=== PATIENT | female | born 1935 | race Two or more races ===

== ENCOUNTER 2016-07-16 12:56 | Emergency (ER) | payer OTHER, MEDICAID ==
--- NOTE | 2016-07-16 13:55 | EDPHY ---
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 The patient reports bilious vomiting earlier in the week. She had vomiting episodically for about 4 days then her symptoms resolved. Her vomiting and epigastric pain returned today prompting her visit to the ED. The patient has no prior history of abdominal surgery. The patient does have a pacemaker. She is currently anticoagulated. She does have a history of coronary artery bypass grafting. Patient denies any melena. She complains of moderate to severe pain in her epigastrium. She denies acute urinary complaints. REVIEW OF SYSTEMS: A comprehensive 10 point review of systems is otherwise negative aside from elements mentioned in the history of present illness. (Jan Eddy) - Physical Exam Exam: General Appearance: Alert, no distress Eyes: Pupils equal and round no pallor or injection ENT, Mouth: Mucous membranes moist Respiratory: There are no retractions, lungs are clear to auscultation Cardiovascular: Regular rate and rhythm Gastrointestinal: Epigastric tenderness to palpation Neurological: A&O, normal motor function, normal sensory exam, normal cranial nerves Skin: Warm and dry, no rashes Musculoskeletal: Neck is supple nontender Extremities: symmetrical, full range of motion (Jan Eddy) Constitutional: Initial Vital Signs Temperature (C) 36.6 C 07/16/16 12:57 Heart Rate 84 07/16/16 12:57 Respiratory Rate 14 07/16/16 12:57 Blood Pressure 108/85 H 07/16/16 12:57 O2 Sat (%) 94 07/16/16 12:57 O2 Delivery Mode Room Air O2 (L/minute) 2 Allergies/Adverse Reactions: Sulfa (Sulfonamide Antibiotics) Allergy (Intermediate, Verified 10/10/14 11:32) Rash Home Medications: Medication Instructions Recorded Clopidogrel Bisulfate [Clopidogrel] 75 mg PO DAILY 09/14/13 Lansoprazole [Lansoprazole 30 mg 30 mg PO DAILY 09/14/13 tab] Rosuvastatin Calcium [Crestor] 10 mg PO DAILY 09/14/13 metFORMIN HCL [Glucophage 500 mg 500 mg PO BIDMEAL 09/14/13 (*)] Carvedilol [Coreg (*)] 6.25 mg PO BIDMEAL #60 tab 09/19/13 Digoxin [Lanoxin 0.125 mg] 0.125 mg PO DAILY10 #30 tab 09/19/13 Diazepam [Valium 5 MG (*)] 5 mg PO BID PRN #10 tab 05/03/14 Alendronate Sodium [Fosamax 70 MG 70 mg PO MO@0700 05/12/15 (*)] Latanoprost 0.005% [Xalatan 0.005% 1 drops EACHEYE HS 05/12/15 (*)] Potassium Chloride [Klor-Con] 25 meq PO BID 05/12/15 Warfarin Sodium [Coumadin 5MG (*)] 2.5 mg PO Q2D 05/12/15 Warfarin Sodium [Coumadin 5MG (*)] 5 mg PO Q2D 05/12/15 Furosemide [Lasix] 60 mg PO DAILY #90 tab 06/25/15 Valsartan [Diovan (*)] 40 mg PO HS #0 tab 06/25/15 Ondansetron Odt [Zofran Odt] 4 mg PO Q4PRN PRN #4 tab 07/16/16 Medical Decision Making ED Course/Re-evaluation: The patient presents to the ED with a one-week history of episodic intermittent epigastric pain and bilious vomiting. Patient had an IV established. She received a L of normal saline. She received IV Zofran. The patient's laboratory studies are within normal limits. The patient did receive IV morphine 4 mg. Given the patient's tenderness in age, a CT scan the abdomen and pelvis has been ordered. The patient is turned over to Dr. Harrison at shift change. If the CT scan in normal and the patient is tolerating liquids, I do feel she can be discharged to home. (Jan Eddy) Patient seen by me at 4:15 p.m.. The patient had initially declined IV contrast for her CT. I discussed this with the son and daughter of the patient as well as the patient. The patient only speaks Farsi but the son speaks good Frisian and the daughter is apparently a physician. We discussed her use of metformin and that she would not be able to take metformin for the next 2 days with the IV contrast however they do eventually agree to IV contrast CT abdomen and pelvis with IV contrast interpreted by me and discussed with Dr. Tuttle shows extensive vascular disease. No evidence for skin viera me of the intestine. No acute findings. Re-evaluation at 6:00 p.m. and patient is stable. The patient family and I discussed imaging and lab results. We discussed treatment plan including criteria for return and importance of follow-up and further evaluation. They expressed understanding and agreement (Ervin Harrison) Differential Diagnosis: Differential diagnosis considered includes perforation, obstruction, pancreatitis, cholecystitis, gastroenteritis, abdominal aortic aneurysm, appendicitis (Jan Eddy) This is likely gastroenteritis (Ervin Harrison) - Data Points Laboratory Results: Laboratory Results 07/16/16 14:00 07/16/16 14:00 07/16/16 07/16/16 07/16/16 16:15 14:00 14:00 WBC RBC Hgb Hct MCV MCH MCHC RDW Plt Count MPV Neut % (Auto) Lymph % (Auto) [place] % (Auto) Eos % (Auto) Baso % (Auto) Nucleat RBC Rel Count Absolute Neuts (auto) Absolute Lymphs (auto) Absolute Monos (auto) Absolute Eos (auto) Absolute Basos (auto) Absolute Nucleated RBC Immature Gran % Immature Gran # PT 25.7 SEC H SEC (12.0-15.0) INR 2.32 H (0.83-1.16) Sodium 131 mEq/L L mEq/L (134-144) Potassium 4.0 mEq/L mEq/L (3.5-5.2) Chloride 95 mEq/L L mEq/L (97-110) Carbon Dioxide 24 mEq/l mEq/l (22-31) Anion Gap 12 mEq/L mEq/L (8-16) BUN 17 mg/dL mg/dL (7-23) Creatinine 0.9 mg/dL mg/dL (0.6-1.0) Estimated GFR > 60 Glucose 168 mg/dL H mg/dL (70-100) Calcium 9.2 mg/dL mg/dL (8.5-10.4) Total Bilirubin 1.3 mg/dL mg/dL (0.1-1.4) Conjugated Bilirubin 0.6 mg/dL H mg/dL (0.0-0.5) Unconjugated Bilirubin 0.7 mg/dL mg/dL (0.0-1.1) AST 25 IU/L IU/L (14-46) ALT 22 IU/L IU/L (9-52) Alkaline Phosphatase 40 IU/L IU/L (38-126) Total Protein 7.1 g/dL g/dL (6.3-8.2) Albumin 4.0 g/dL g/dL (3.5-5.0) Lipase 136.0 IU/L IU/L (23-300) Urine Color YELLOW Urine Appearance CLEAR Urine pH 7.0 (5.0-7.5) Ur Specific [place] 1.004 (1.002-1.030) Urine Protein NEGATIVE (NEGATIVE) Urine Ketones NEGATIVE (NEGATIVE) Urine Blood 1+ H (NEGATIVE) Urine Nitrate NEGATIVE (NEGATIVE) Urine Bilirubin NEGATIVE (NEGATIVE) Urine Urobilinogen NEGATIVE EU EU (0.2-1.0) Ur Leukocyte Esterase NEGATIVE (NEGATIVE) Urine RBC 1-3 /hpf /hpf (0-3) Urine WBC 1-3 /hpf /hpf (0-3) Ur Epithelial Cells TRACE /lpf /lpf (NONE-1+) Urine Mucus TRACE /lpf /lpf (NONE-1+) Ur Culture Indicated? NOT INDICATED (NI) Urine Glucose NEGATIVE (NEGATIVE) Digoxin 1.5 ng/mL ng/mL (0.8-2.0) 07/16/16 14:00 WBC 8.98 10^3/uL 10^3/uL (3.80-9.50) RBC 3.40 10^6/uL L 10^6/uL (4.18-5.33) Hgb 11.4 g/dL L g/dL (12.6-16.3) Hct 32.3 % L % (38.0-47.0) MCV 95.0 fL fL (81.5-99.8) MCH 33.5 pg pg (27.9-34.1) MCHC 35.3 g/dL g/dL (32.4-36.7) RDW 12.4 % % (11.5-15.2) Plt Count 204 10^3/uL 10^3/uL (150-400) MPV 10.1 fL fL (8.7-11.7) Neut % (Auto) 75.2 % H % (39.3-74.2) Lymph % (Auto) 14.9 % L % (15.0-45.0) [place] % (Auto) 8.6 % % (4.5-13.0) Eos % (Auto) 0.4 % L % (0.6-7.6) Baso % (Auto) 0.3 % % (0.3-1.7) Nucleat RBC Rel Count 0.0 % % (0.0-0.2) Absolute Neuts (auto) 6.75 10^3/uL H 10^3/uL (1.70-6.50) Absolute Lymphs (auto) 1.34 10^3/uL 10^3/uL (1.00-3.00) Absolute Monos (auto) 0.77 10^3/uL 10^3/uL (0.30-0.80) Absolute Eos (auto) 0.04 10^3/uL 10^3/uL (0.03-0.40) Absolute Basos (auto) 0.03 10^3/uL 10^3/uL (0.02-0.10) Absolute Nucleated RBC 0.00 10^3/uL 10^3/uL (0-0.01) Immature Gran % 0.6 % % (0.0-1.1) Immature Gran # 0.05 10^3/uL 10^3/uL (0.00-0.10) PT INR Sodium Potassium Chloride Carbon Dioxide Anion Gap BUN Creatinine Estimated GFR Glucose Calcium Total Bilirubin Conjugated Bilirubin Unconjugated Bilirubin AST ALT Alkaline Phosphatase Total Protein Albumin Lipase Urine Color Urine Appearance Urine pH Ur Specific [place] Urine Protein Urine Ketones Urine Blood Urine Nitrate Urine Bilirubin Urine Urobilinogen Ur Leukocyte Esterase Urine RBC Urine WBC Ur Epithelial Cells Urine Mucus Ur Culture Indicated? Urine Glucose Digoxin Medications Given: Discontinued Medications Sodium Chloride (Ns) 1,000 mls @ 0 mls/hr IV ONCE ONE PRN Reason: Wide Open Stop: 07/16/16 14:00 Last Admin: 07/16/16 14:00 Dose: 1,000 mls Morphine Sulfate (Morphine) 4 mg IVP EDNOW ONE Stop: 07/16/16 14:00 Last Admin: 07/16/16 14:26 Dose: Not Given Ondansetron HCl (Zofran) 4 mg IVP EDNOW ONE Stop: 07/16/16 14:00 Last Admin: 07/16/16 14:13 Dose: 4 mg Departure - Departure Disposition: Home, Routine, Self-Care Clinical Impression: Acute gastroenteritis Condition: Good Instructions: Acute Nausea and Vomiting (ED) Additional Instructions: Frequent, small sips fluids. Gradual diet advancement. Zofran if needed for nausea and vomiting. Imodium (loperamide) as needed for diarrhea. Return for worsening symptoms. Recheck in 2 days without fail by regular physician Referrals: Laurie Dorado MD [Primary Care Provider] - 1-2 days without fail Prescriptions: Ondansetron Odt [Zofran Odt] 4 mg PO Q4PRN PRN #4 tab PRN Reason: Nausea/Vomiting, Use 1st
[2016-07-16] MEDS ORDERED: ONDANSETRON 4 MG/2 ML VIAL IVP ONE (13:59)
[2016-07-16] MEDS ORDERED: NS 1,000 ML IV ONE (13:59)
[2016-07-16 14:11] LABS: % IMMATURE GRANULYOCYTES 0.6 % (0.0-1.1); ABSOLUTE IMMATURE GRANULOCYTES 0.05 10^3/uL (0.00-0.10); ADD DIFF? NO; ADD MORPH? NO; ADD SCAN? NO; ATYPICAL LYMPHOCYTE FLAG 0 (0-99); FRAGMENT RBC FLAG 0 (0-99); HEMATOCRIT 32.3 % (38.0-47.0); HEMOGLOBIN 11.4 g/dL (12.6-16.3); LEFT SHIFT FLG 0 (0-99); LIPEMIA HEMOLYSIS FLAG 90 (0-99); MEAN CELL HEMOGLOBIN 33.5 pg (27.9-34.1); MEAN CELL HEMOGLOBIN CONCENTR. 35.3 g/dL (32.4-36.7); MEAN PLATELET VOLUME 10.1 fL (8.7-11.7); PLATELET CLUMPS FLAG 10 (0-99); PLATELET COUNT 204 10^3/uL (150-400); RED CELL DISTRIBUTION WIDTH 12.4 % (11.5-15.2)
[2016-07-16 14:17] VITALS: RESP 16
[2016-07-16 14:38] LABS: ALANINE AMINOTRANSFERASE 22 IU/L (9-52); ALKALINE PHOSPHATASE 40 IU/L (38-126); ANION GAP 12 mEq/L (8-16); ASPARTATE AMINOTRANSFERASE 25 IU/L (14-46); BILIRUBIN,TOTAL 1.3 mg/dL (0.1-1.4); BILIRUBIN-CONJUGATED 0.6 mg/dL (0.0-0.5); BILIRUBIN-UNCONJUGATED 0.7 mg/dL (0.0-1.1); CALCIUM 9.2 mg/dL (8.5-10.4); CARBON DIOXIDE 24 mEq/l (22-31); CHLORIDE 95 mEq/L (97-110); CREATININE 0.9 mg/dL (0.6-1.0); DIGOXIN 1.5 ng/mL (0.8-2.0); GLOMERULAR FILTRATION RATE > 60; GLUCOSE 168 mg/dL (70-100); SODIUM 131 mEq/L (134-144); TOTAL PROTEIN 7.1 g/dL (6.3-8.2)
[2016-07-16 15:15] LABS: INR 2.32 (0.83-1.16); PROTIME(PATIENT) 25.7 SEC (12.0-15.0)
[2016-07-16] MEDS ORDERED: IOPAMIDOL (ISOVUE-300) 100 ML BTL IV ONE (15:15)
[2016-07-16 17:00] LABS: COLOR YELLOW; LEUKOCYTE ESTERASE,URINE NEGATIVE (NEGATIVE); NITRITE,URINE NEGATIVE (NEGATIVE)
[2016-07-16 17:07] LABS: MUCUS TRACE /lpf (NONE-1+)
[2016-07-16 18:01] VITALS: BP 122/40; PULSE 77; TEMP 98.4; O2SAT 99
== END 2016-07-16 18:27 | disposition home or self-care (01) ==
DX: K52.9 Noninfective gastroenteritis and colitis, unspecified (principal); E11.9 Type 2 diabetes mellitus without complications; I25.10 Atherosclerotic heart disease of native coronary artery without angina pectoris; Z79.01 Long term (current) use of anticoagulants
CPT/HCPCS: 74177; 96361; 96374; 99285; J2405; Q9967

== ENCOUNTER → 2016-12-12 | Outpatient (CLI) | payer OTHER, MEDICAID | LOC: BHFA 10:00 | PROVIDERS: ATTEND Internal Medicine Cardiovascular Disease | DX: I25.10 Atherosclerotic heart disease of native coronary artery without angina pectoris (principal); I10 Essential (primary) hypertension ==

== ENCOUNTER 2017-07-24 12:27 | Inpatient (IN) | payer OTHER, MEDICAID ==
--- NOTE | 2017-07-24 14:42 | EDPHY ---
H & P Time Seen by Provider: 07/24/17 14:40 HPI/ROS: CHIEF COMPLAINT: Back pain after a fall on July 13 HISTORY OF PRESENT ILLNESS: Patient presents with her 2 daughters. She apparently had a fall unknown mechanism on July 13 and has had bruising on her right flank ever since which is worse today. Does not radiate and worse with movement. Associated with some darker urine and bilateral increased leg swelling. She has baseline gait instability which is been worse over the past week. She denies headache or neck pain. No seizure activity. Pain in her back is moderate hand appears to be impacting her ability to get around at home. REVIEW OF SYSTEMS: Eye: no change in vision ENT: no sore throat Cardiac: no chest pain or syncope Pulmonary: no cough or SOB Abdomen: no vomiting, diarrhea, abdominal pain Musculoskeletal: HPI Skin: Bruising on the right flank and abrasion on the right knee Neuro: no headache Constitutional: no fever : no urinary symptoms A comprehensive 10 point review of systems is otherwise negative aside from elements mentioned in the history of present illness. PAST MEDICAL HISTORY: Includes coronary artery disease, diabetes, atrial fibrillation on Plavix. Pacemaker. Social history: Here with her 2 daughters General Appearance: Alert and conversant, cooperative. Eyes: No scleral icterus. ENT, Mouth: Normal mucous membranes. Respiratory: Normal respiratory effort, breath sounds equal, lungs are clear to auscultation. Cardiovascular: Regular rate and rhythm. Gastrointestinal: Abdomen is soft and non tender. Neurological: Alert, face symmetric, normal motor and sensory in extremities. 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 Skin: Bruising over the right flank and abrasion on the right knee, does not appear to have surrounding redness on the right knee or lymphangitis or discharge. Musculoskeletal: Lumbar spine tenderness but no thoracic or cervical spine tenderness. Bilateral 3 to 4+ pedal edema including the feet. Compartments are soft. Psychiatric: Not agitated. Emergency Department course/MDM: Bilateral peripheral edema and flank bruising, worsening pain and gait instability since falling Coumadin. Noncontrast head CT for trauma and anticoagulation, CT abdomen and pelvis with spine reconstructions for flank and back trauma in the lower torso, labs to include CBC chemistry and BNP. EKG. 1548: Negative head per Isuani. 1610: [place], old T12, L1, and L5 compression fractures. 1620: [place] new pleural effusions and ascites on abdomen pelvis CT scan. Discussed with patient and daughters, admit CHF with peripheral edema and trouble walking, pleural effusions and ascites, BNP >11,000. Smoking Status: Never smoked Constitutional: Initial Vital Signs Temperature (C) 36.5 C 07/24/17 12:41 Heart Rate 73 07/24/17 12:41 Respiratory Rate 18 07/24/17 12:41 Blood Pressure 139/50 H 07/24/17 12:41 O2 Sat (%) 96 07/24/17 12:41 O2 Delivery Mode Room Air Allergies/Adverse Reactions: Sulfa (Sulfonamide Antibiotics) Allergy (Intermediate, Verified 07/24/17 12:40) Rash Home Medications: Medication Instructions Recorded Clopidogrel Bisulfate [Clopidogrel] 75 mg PO HS 09/14/13 Lansoprazole [Lansoprazole 30 mg 30 mg PO DAILY 09/14/13 tab] metFORMIN HCL [Glucophage 500 mg 500 mg PO BIDMEAL 09/14/13 (*)] Carvedilol [Coreg (*)] 6.25 mg PO BIDMEAL #60 tab 09/19/13 Digoxin [Lanoxin 0.125 mg] 0.125 mg PO DAILY10 #30 tab 09/19/13 Diazepam [Valium 5 MG (*)] 5 mg PO BID PRN #10 tab 05/03/14 Alendronate Sodium [Fosamax 70 MG 70 mg PO MO@0700 05/12/15 (*)] Latanoprost 0.005% [Xalatan 0.005% 1 drops EACHEYE HS 05/12/15 (*)] Potassium Chloride [Klor-Con] 25 meq PO DAILY 05/12/15 Warfarin Sodium [Coumadin 5MG (*)] 2.5 mg PO Q2D 05/12/15 Warfarin Sodium [Coumadin 5MG (*)] 5 mg PO Q2D 05/12/15 Furosemide [Lasix 40 MG (*)] 40 mg PO DAILY 07/24/17 Ondansetron Odt [Zofran Odt] 4 mg PO Q4H PRN 07/24/17 Medical Decision Making - Diagnostics EKG Interpretation: 12-lead EKG interpreted by me; official reading is in trace master. My interpretation is ventricular paced rhythm at 80. Imaging Results: Imaging Impressions Chest X-Ray 07/24/17 14:52 Impression: 1. No discernible fracture. 2. Cardiomegaly. No failure. Abdomen CT 07/24/17 15:10 Impression: 1. All of the findings may be related to underlying CHF and/or cirrhosis. 2. No obvious posttraumatic abnormality identified. 3. Difficult to exclude active gallbladder disease. 4. Atherosclerosis. 5. Nonobstructive bilateral nephrolithiasis. Final concordant results discussed with Dr. Efrem Buchanan at 4:20 PM. General information for patients regarding this examination can be found at [email or web address]. If you have questions or comments about this report, please contact me at [phone] (hospital) or [phone] (cell). Head CT 07/24/17 15:10 Impression: 1. Moderate atrophy. 2. No acute hemorrhage, hydrocephalus, or mass effect. 3. Cerebrovascular atherosclerosis. 4. No definite acute infarct. 5. Moderate microvascular ischemic gliosis. 6. No skull fracture. 7. No epidural or subdural hematoma. Findings and recommendations discussed with Emergency Department physician, EFREM BUCHANAN at 15:45 hour, 07/24/2017. Final report concurs with initial preliminary interpretation. Lumbar Spine CT 07/24/17 15:15 Impression: Osteoporosis with stable old compressions. Nothing acute identified. General information for patients regarding this examination can be found at [facility]. If you have questions or comments about this report, please contact me at [phone](hospital) or [phone] (cell). Imaging: Discussed imaging studies w/ theatrical rigger Radiologist Differential Diagnosis: Differential considered including but not limited to spine fracture, kidney injury, subcutaneous flank hematoma, retroperitoneal hematoma. Consult/Admit Bed Type: [place] [id number] - Data Points Laboratory Results: Laboratory Results 07/24/17 14:59 07/24/17 14:59 07/24/17 07/24/17 07/24/17 15:40 15:09 15:05 WBC RBC Hgb POC Hgb 12.9 gm/dL gm/dL TNP (12.6-16.3) Hct POC Hct 38 % % TNP (38-47) MCV MCH MCHC RDW Plt Count MPV Neut % (Auto) Lymph % (Auto) [place] % (Auto) Eos % (Auto) Baso % (Auto) Nucleat RBC Rel Count Absolute Neuts (auto) Absolute Lymphs (auto) Absolute Monos (auto) Absolute Eos (auto) Absolute Basos (auto) Absolute Nucleated RBC Immature Gran % Immature Gran # PT INR POC Sodium 129 mEq/L L mEq/L TNP (135-145) Sodium POC Potassium 4.0 mEq/L mEq/L TNP (3.3-5.0) Potassium POC Chloride 88 mEq/L L mEq/L TNP (97-110) Chloride Carbon Dioxide Anion Gap POC BUN 25 mg/dL H mg/dL TNP (7-23) BUN Creatinine POC Creatinine 1.2 mg/dL H mg/dL 1.1 mg/dL H mg/dL (0.6-1.0) (0.6-1.0) Estimated GFR Glucose POC Glucose 123 mg/dL H mg/dL 124 mg/dL H mg/dL (70-100) (70-100) Calcium NT-Pro-B Natriuret Pep Urine Color YELLOW Urine Appearance CLEAR Urine pH 7.0 (5.0-7.5) Ur Specific [place] 1.010 (1.002-1.030) Urine Protein NEGATIVE (NEGATIVE) Urine Ketones NEGATIVE (NEGATIVE) Urine Blood NEGATIVE (NEGATIVE) Urine Nitrate NEGATIVE (NEGATIVE) Urine Bilirubin NEGATIVE (NEGATIVE) Urine Urobilinogen NEGATIVE EU EU (0.2-1.0) Ur Leukocyte Esterase NEGATIVE (NEGATIVE) Urine Glucose NEGATIVE (NEGATIVE) 07/24/17 07/24/17 07/24/17 15:00 14:59 14:59 WBC RBC Hgb POC Hgb Hct POC Hct MCV MCH MCHC RDW Plt Count MPV Neut % (Auto) Lymph % (Auto) [place] % (Auto) Eos % (Auto) Baso % (Auto) Nucleat RBC Rel Count Absolute Neuts (auto) Absolute Lymphs (auto) Absolute Monos (auto) Absolute Eos (auto) Absolute Basos (auto) Absolute Nucleated RBC Immature Gran % Immature Gran # PT 17.8 SEC H SEC (12.0-15.0) INR 1.45 H (0.83-1.16) POC Sodium Sodium 129 mEq/L L mEq/L (135-145) POC Potassium Potassium 4.2 mEq/L mEq/L (3.5-5.2) POC Chloride Chloride 86 mEq/L L mEq/L (97-110) Carbon Dioxide 30 mEq/l mEq/l (22-31) Anion Gap 13 mEq/L mEq/L (8-16) POC BUN BUN 24 mg/dL H mg/dL (7-23) Creatinine 1.0 mg/dL mg/dL (0.6-1.0) POC Creatinine Estimated GFR 53 Glucose 115 mg/dL H mg/dL (70-100) POC Glucose Calcium 9.7 mg/dL mg/dL (8.5-10.4) NT-Pro-B Natriuret Pep 48781 pg/mL H pg/mL (0-450) Urine Color Urine Appearance Urine pH Ur Specific [place] Urine Protein Urine Ketones Urine Blood Urine Nitrate Urine Bilirubin Urine Urobilinogen Ur Leukocyte Esterase Urine Glucose 07/24/17 14:59 WBC 6.85 10^3/uL 10^3/uL (3.80-9.50) RBC 3.46 10^6/uL L 10^6/uL (4.18-5.33) Hgb 11.0 g/dL L g/dL (12.6-16.3) POC Hgb Hct 33.0 % L % (38.0-47.0) POC Hct MCV 95.4 fL fL (81.5-99.8) MCH 31.8 pg pg (27.9-34.1) MCHC 33.3 g/dL g/dL (32.4-36.7) RDW 13.5 % % (11.5-15.2) Plt Count 178 10^3/uL 10^3/uL (150-400) MPV 10.1 fL fL (8.7-11.7) Neut % (Auto) 63.9 % % (39.3-74.2) Lymph % (Auto) 20.3 % % (15.0-45.0) [place] % (Auto) 13.9 % H % (4.5-13.0) Eos % (Auto) 0.7 % % (0.6-7.6) Baso % (Auto) 0.9 % % (0.3-1.7) Nucleat RBC Rel Count 0.0 % % (0.0-0.2) Absolute Neuts (auto) 4.38 10^3/uL 10^3/uL (1.70-6.50) Absolute Lymphs (auto) 1.39 10^3/uL 10^3/uL (1.00-3.00) Absolute Monos (auto) 0.95 10^3/uL H 10^3/uL (0.30-0.80) Absolute Eos (auto) 0.05 10^3/uL 10^3/uL (0.03-0.40) Absolute Basos (auto) 0.06 10^3/uL 10^3/uL (0.02-0.10) Absolute Nucleated RBC 0.00 10^3/uL 10^3/uL (0-0.01) Immature Gran % 0.3 % % (0.0-1.1) Immature Gran # 0.02 10^3/uL 10^3/uL (0.00-0.10) PT INR POC Sodium Sodium POC Potassium Potassium POC Chloride Chloride Carbon Dioxide Anion Gap POC BUN BUN Creatinine POC Creatinine Estimated GFR Glucose POC Glucose Calcium NT-Pro-B Natriuret Pep Urine Color Urine Appearance Urine pH Ur Specific [place] Urine Protein Urine Ketones Urine Blood Urine Nitrate Urine Bilirubin Urine Urobilinogen Ur Leukocyte Esterase Urine Glucose Point of Care Test Results: 07/24/17 07/24/17 15:05 15:09 POC Sodium TNP 129 L POC Potassium TNP 4.0 POC Chloride TNP 88 L POC BUN TNP 25 H POC Creatinine 1.1 H 1.2 H POC Glucose 124 H 123 H Departure - Departure Disposition: [facility] Inpatient Acute Clinical Impression: Hyponatremia CHF (congestive heart failure) Qualifiers: Heart failure type: unspecified Heart failure chronicity: acute on chronic Qualified Code(s): I50.9 - Heart failure, unspecified Condition: Good Referrals: Laurie Dorado MD [Primary Care Provider] - As per Instructions
--- NOTE | 2017-07-24 14:59 | CPEKG ---
Heart Rate: 80 RR Interval: 750 P-R Interval: 207 QRSD Interval: 140 QT Interval: 392 QTC Interval: 453 P [place]: 0 QRS [place]: -62 T Wave [place]: 94 EKG Severity - ABNORMAL ECG - EKG Impression: VENTRICULAR-PACED RHYTHM Electronically Signed By: Lars Scott 24-Jul-2017 15:05:56
[2017-07-24 15:11] LABS: PLATELET COUNT 178 10^3/uL (150-400)
[2017-07-24] MEDS ORDERED: IOPAMIDOL (ISOVUE-300) 100 ML BTL ONE (15:14)
[2017-07-24 15:21] LABS: INR 1.45 (0.83-1.16); PROTIME(PATIENT) 17.8 SEC (12.0-15.0)
--- NOTE | 2017-07-24 15:31 | ASMTLACE ---
NADER Comorbidities - select Answers: Congestive heart failure all that apply Coronary Atery Disease Diabetes (uncontrolled or controlled) History of falls # of Emergency department Answers: 1-2 visits in the last 6 months Score: 9 Date Signed: 07/24/2017 03:30 PM Electronically Signed By:Lesly Mobley RN
--- NOTE | 2017-07-24 16:59 | ASMTCMCOM ---
CM Note CM Note Notes: Call from Snow Colbert with [facility]: patient was being seen there today and she was advised to come to ED for evaluation of her CHF. Per Snow, patient has been trying to get an appointment with [facility] - she will need this upon discharge. She lives with her son Lovely and has two daughters, one of whom [place] until 08/09/17. She is currently open with [facility] RN/PT. Snow recommended that we add OT and FUNCTIONAL SKILLS TUTOR when patient is discharged. Case Management will follow for discharge planning. Date Signed: 07/24/2017 04:59 PM Electronically Signed By:Lesly Mobley RN
[2017-07-24] MEDS ORDERED: D50W 25 GM/50 ML SYR IVP PRN (18:11)
[2017-07-24] MEDS ORDERED: ONDANSETRON 4 MG/2 ML VIAL IVP PRN (18:28)
[2017-07-24] MEDS ORDERED: ONDANSETRON DISINTEGRATING 4 MG TAB PO PRN (18:28)
[2017-07-24] MEDS ORDERED: WARFARIN SODIUM 5 MG TAB PO SCH (18:45)
--- NOTE | 2017-07-24 18:46 | PDGENHP ---
History and Physical - Chief Complaint Back pain, weakness - History of Present Illness 81 yo female with hx of CAD, Afib, PPM, CHF, presents with back pain and progressive weakness since falling on Jul 13 for unclear reasons. She was seen at her PCP's office today and referred to the E.D. She is on AC on Coumadin. She has some bruising on her back which appears healing and reports back pain. Reports MAYNARD, intermittent chest pain, increased leg swelling, increased abd swelling. No fever. No palpitations. No current chest pain. In the E.D. she had Heat CT, Abd Ct, which did not show acute findings. CXR personally reviewed did not show edema. Translation is provided by her daughters who are at bedside. PMHx: Afib, CAD, pacemaker, DM, Frequent Falls PSHx: CABG 2007, pacemaker 2009, coronary artery stents 2009 PSHx: No T/E/I, lives with son FmHx: Parents are . History Information - Allergies/Home Medication List Allergies/Adverse Reactions: Sulfa (Sulfonamide Antibiotics) Allergy (Intermediate, Verified 07/24/17 12:40) Rash Home Medications: Clopidogrel Bisulfate [Clopidogrel] 75 mg PO HS 09/14/13 [Last Taken 07/23/17] Lansoprazole [Lansoprazole 30 mg tab] 30 mg PO DAILY 09/14/13 [Last Taken ] metFORMIN HCL [Glucophage 500 mg (*)] 500 mg PO BIDMEAL 09/14/13 [Last Taken 06/12] Alendronate Sodium [Fosamax 70 MG (*)] 70 mg PO MO@0700 05/12/15 [Last Taken ] Latanoprost 0.005% [Xalatan 0.005% (*)] 1 drops EACHEYE HS 05/12/15 [Last Taken 07/23/17] Potassium Chloride [Klor-Con] 25 meq PO DAILY 05/12/15 [Last Taken 07/24/17] Warfarin Sodium [Coumadin 5MG (*)] 2.5 mg PO Q2D 05/12/15 [Last Taken 07/23/17] Warfarin Sodium [Coumadin 5MG (*)] 5 mg PO Q2D 05/12/15 [Last Taken 07/22/17] Furosemide [Lasix 40 MG (*)] 40 mg PO DAILY 07/24/17 [Last Taken 07/24/17] Ondansetron Odt [Zofran Odt] 4 mg PO Q4H PRN 07/24/17 [Last Taken Unknown] I have personally reviewed and updated: medical history, social history - Social History Smoking Status: Never smoked Review of Systems Review of Systems: ROS: 10pt was reviewed & negative except for what was stated in HPI & below Physical Exam Physical Exam: Temp Pulse Resp BP Pulse Ox 36.6 C 76 18 149/66 H 93 07/24/17 17:55 07/24/17 17:55 07/24/17 17:55 07/24/17 17:55 07/24/17 17:55 Constitutional: no apparent distress Eyes: PERRL Ears, Nose, Mouth, Throat: moist mucous membranes Cardiovascular: regular rate and rhythym, edema (3+LE Edema) Respiratory: no respiratory distress, clear to auscultation Gastrointestinal: normoactive bowel sounds, ascites, distension Skin: warm Musculoskeletal: generalized weakness Neurologic: AAOx3 Psychiatric: interacting appropriately, not anxious, not encephalopathic Lymph, Heme, Immunologic: No petechiae Lab Data & Imaging Review 07/24/17 14:59 07/24/17 14:59 WBC 6.85 10^3/uL (3.80-9.50) 07/24/17 14:59 RBC 3.46 10^6/uL (4.18-5.33) L 07/24/17 14:59 Hgb 11.0 g/dL (12.6-16.3) L 07/24/17 14:59 POC Hgb 12.9 gm/dL (12.6-16.3) 07/24/17 15:09 Hct 33.0 % (38.0-47.0) L 07/24/17 14:59 POC Hct 38 % (38-47) 07/24/17 15:09 MCV 95.4 fL (81.5-99.8) 07/24/17 14:59 MCH 31.8 pg (27.9-34.1) 07/24/17 14:59 MCHC 33.3 g/dL (32.4-36.7) 07/24/17 14:59 RDW 13.5 % (11.5-15.2) 07/24/17 14:59 Plt Count 178 10^3/uL (150-400) 07/24/17 14:59 MPV 10.1 fL (8.7-11.7) 07/24/17 14:59 Neut % (Auto) 63.9 % (39.3-74.2) 07/24/17 14:59 Lymph % (Auto) 20.3 % (15.0-45.0) 07/24/17 14:59 [place] % (Auto) 13.9 % (4.5-13.0) H 07/24/17 14:59 Eos % (Auto) 0.7 % (0.6-7.6) 07/24/17 14:59 Baso % (Auto) 0.9 % (0.3-1.7) 07/24/17 14:59 Nucleat RBC Rel Count 0.0 % (0.0-0.2) 07/24/17 14:59 Absolute Neuts (auto) 4.38 10^3/uL (1.70-6.50) 07/24/17 14:59 Absolute Lymphs (auto) 1.39 10^3/uL (1.00-3.00) 07/24/17 14:59 Absolute Monos (auto) 0.95 10^3/uL (0.30-0.80) H 07/24/17 14:59 Absolute Eos (auto) 0.05 10^3/uL (0.03-0.40) 07/24/17 14:59 Absolute Basos (auto) 0.06 10^3/uL (0.02-0.10) 07/24/17 14:59 Absolute Nucleated RBC 0.00 10^3/uL (0-0.01) 07/24/17 14:59 Immature Gran % 0.3 % (0.0-1.1) 07/24/17 14:59 Immature Gran # 0.02 10^3/uL (0.00-0.10) 07/24/17 14:59 PT 17.8 SEC (12.0-15.0) H 07/24/17 15:00 INR 1.45 (0.83-1.16) H 07/24/17 15:00 POC Sodium 129 mEq/L (135-145) L 07/24/17 15:09 Sodium 129 mEq/L (135-145) L 07/24/17 14:59 POC Potassium 4.0 mEq/L (3.3-5.0) 07/24/17 15:09 Potassium 4.2 mEq/L (3.5-5.2) 07/24/17 14:59 POC Chloride 88 mEq/L (97-110) L 07/24/17 15:09 Chloride 86 mEq/L (97-110) L 07/24/17 14:59 Carbon Dioxide 30 mEq/l (22-31) 07/24/17 14:59 Anion Gap 13 mEq/L (8-16) 07/24/17 14:59 POC BUN 25 mg/dL (7-23) H 07/24/17 15:09 BUN 24 mg/dL (7-23) H 07/24/17 14:59 Creatinine 1.0 mg/dL (0.6-1.0) 07/24/17 14:59 POC Creatinine 1.2 mg/dL (0.6-1.0) H 07/24/17 15:09 Estimated GFR 53 07/24/17 14:59 Glucose 115 mg/dL (70-100) H 07/24/17 14:59 POC Glucose 123 mg/dL (70-100) H 07/24/17 15:09 Calcium 9.7 mg/dL (8.5-10.4) 07/24/17 14:59 NT-Pro-B Natriuret Pep 69886 pg/mL (0-450) H 07/24/17 14:59 Urine Color YELLOW 07/24/17 15:40 Urine Appearance CLEAR 07/24/17 15:40 Urine pH 7.0 (5.0-7.5) 07/24/17 15:40 Ur Specific [place] 1.010 (1.002-1.030) 07/24/17 15:40 Urine Protein NEGATIVE (NEGATIVE) 07/24/17 15:40 Urine Ketones NEGATIVE (NEGATIVE) 07/24/17 15:40 Urine Blood NEGATIVE (NEGATIVE) 07/24/17 15:40 Urine Nitrate NEGATIVE (NEGATIVE) 07/24/17 15:40 Urine Bilirubin NEGATIVE (NEGATIVE) 07/24/17 15:40 Urine Urobilinogen NEGATIVE EU (0.2-1.0) 07/24/17 15:40 Ur Leukocyte Esterase NEGATIVE (NEGATIVE) 07/24/17 15:40 Urine Glucose NEGATIVE (NEGATIVE) 07/24/17 15:40 Assessment & Plan Assessment: #CHF with exacerbation -Last TTE May 2015 c/w LVEF of 45%, Severe Hypokinesis Inferior and Posterior brown, Dilated Left Atrium, Severe Mitral valve calcifications #Volume overload #CP #Afib, PPM, #chronic AC, subtherapeutic INR #DM, non IDDM #Recent Falls #Weakness Plan: -Inpatient admission -Lasix IV -TTE -Cards consult tomorrow, the patients and her pcp have requested, I have not notified -Tele -Cont Digoxin -Hold Metformin -Warfarin, pharmacy to dose -DNR, confirmed at bedside -PT/OT
[2017-07-24] MEDS ORDERED: WARFARIN SODIUM 5 MG TAB PO ONE (19:00)
[2017-07-24] MEDS: CLOPIDOGREL BISULFATE 75 MG TAB PO SCH (20:13)
[2017-07-24] MEDS: FUROSEMIDE 40 MG/4 ML VIAL IVP SCH (20:13)
[2017-07-24] MEDS: LATANOPROST 0.005% 2.5 ML OPHT DROPS EACHEYE SCH (20:58)
[2017-07-25 04:29] LABS: PLATELET COUNT 167 10^3/uL (150-400)
[2017-07-25 04:34] LABS: INR 1.49 (0.83-1.16); PROTIME(PATIENT) 18.2 SEC (12.0-15.0)
[2017-07-25] MEDS: ACETAMINOPHEN 325 MG TAB PO PRN ×3 (06:18→21:08)
[2017-07-25] MEDS: INSULIN LISPRO 100 UNIT/ML SC SCH ×3 (08:21→18:23)
[2017-07-25] MEDS: FUROSEMIDE 40 MG/4 ML VIAL IVP SCH ×2 (09:15→14:32)
[2017-07-25] MEDS: PANTOPRAZOLE SODIUM 40 MG TAB PO SCH (09:16)
[2017-07-25] MEDS: CARVEDILOL 6.25 MG TAB PO SCH ×2 (09:16→18:22)
[2017-07-25] MEDS: POTASSIUM CL 20 MEQ TAB PO SCH (09:17)
[2017-07-25] MEDS: DIGOXIN 125 MCG TAB PO SCH (09:17)
--- NOTE | 2017-07-25 11:38 | ECHO ---
[email or web address] [address] Main: [phone] Fax: Transthoracic Echocardiogram Name: KELSY SOLORZANO MR#: [id number] Study Date: 07/25/2017 Study Time: 07:45 AM Date of : 1935 Age: 81 year(s) Height: 149.9 cm (59 in.) Weight: 58.06 kg (128 lb.) BSA: 1.53 m2 Gender: Female Examination: Echo Indication: CHF, Pacert Image Quality: Technically Difficult Contrast: Requested by: Jerald Johnson BP: 107 mmHg/69 mmHg Heart Rate: Rhythm: Indication: CHF, Pacert Procedure Staff Internal Sales: Susi Lorenzana RDCS Reading Physician: Jose Armando Warren MD Requesting Provider: Conclusions: No pericardial effusion. reduced left ventricular systolic function ejection fraction between 25 and 30%. Regional wall motion abnormalities as outlined above. Severe mitral annular calcification with moderate mitral stenosis and moderate mitral regurgitation. Mean gradient is 9 mm of mercury. Significant aortic cusp calcification with trace aortic regurgitation. Moderate to severe tricuspid regurgitation with a pulmonary artery pressure estimated at least 53 mm of mercury. Measurements: Chambers Valvular Assessment AV/MV Valvular Assessment TV/PV Normal Normal Normal Name Value Range Name Value Range Name Value Range IVSd (2D): 0.9 cm (0.6 cm-1.1 AV meanP mmHg ( - ) TR Vmax: 3.08 mm/s ( - ) cm) LVOT Vmax: 0.92 m/s (0.7 m/s-1.1 TR PGmax: 38 mmHg ( - ) LVDd (2D): 5.4 cm (3.9 cm-5.3 m/s) syst. PAP: 43 mmHg ( - ) cm) KANCHAN (VTI): 1.7 cm ( - ) LVDs (2D): 4.6 cm (2.1 cm-4 MV meanP mmHg ( - ) cm) MV PHT: 0.090 s ( - ) LVPWd (2D): 0.5 cm ( - ) MVA (Vmax): 1.2 m/s ( - ) LVOTd 1.8 cm 1.8 cm mm MVA (PHT): 2.4 s ( - ) LVEF (2D): 31 (>=54 %) EF Range: 25-30 % Continued Measurements: Chambers Valvular Assessment AV/MV Valvular Assessment TV/PV Name Value Name Value Name Value LADs: 4.7 cm MV Annulus: 3.7 cm CVP (est.): 5 mmHg LADs Lon.9 cm MV VTI: 46.80 cm LA Area: 30.0 cm2 MR Vena Contracta: 0.3 cm Patient: KELSY SOLORZANO Study Date: 07/25/2017 Page 1 of 2 07:45 AM Findings: Left Ventricle: Normal size left ventricle. No LV hypertrophy. Normal global systolic LV function. The ejection fraction is estimated to be 25-30 %. Normal diastolic LV function. LV septal motion consistent with conduction abnormality. LV apex is akinetic. LV inferior/inferolateral brown are akinetic.. Right Ventricle: Normal size right ventricle. Left Atrium: The left atrium is moderately to severely dilated. Right Atrium: The right atrium is mildly dilated. Mitral Valve: Severe mitral annular calcification. Moderate mitral valve stenosis is present. Moderate mitral valve regurgitation is present. MV mean PG is 9 mmHG.. Aortic Valve: Minimal aortic cusp calcification is noted. Mild aortic cusp calcification is noted. Trivial aortic valve regurgitation. Tricuspid Valve: The tricuspid valve is normal in appearance and function. Moderate tricuspid regurgitation is present. RVSP is 53mmHG.. Pulmonic Valve: The pulmonic valve is normal in appearance and function. Mild pulmonic valve regurgitation is noted. Aorta: The aorta is normal. Pericardium: No pericardial effusion. Left side pleural effusion. (No Signature Object) Patient: KELSY SOLORZANO Study Date: 07/25/2017 Page 2 of 2 07:45 AM [id number]
--- NOTE | 2017-07-25 11:56 | PDMN ---
Medical Necessity Medical necessity: Pt meets IP criteria per MD; est los >2 mn for eval/tx of CHF exacerbation & progressive weakness w/recent falls; admit for further workup /cardiac monitoring, Cardiology consult, IV Lasix, med management & therapies; hx AFIB on AC, CAD, diabetes; per H&P & order 07/24/17
--- NOTE | 2017-07-25 13:54 | ASMTCMCOM ---
CM Note CM Note Notes: Pts case discussed in tx rounds. Therapies have been ordered. OT is recommending HC with home w/ 24hr supervision. Awaiting recommendation from PT. CM to follow. Plan: BC; RN, PT, OT, Date Signed: 07/25/2017 01:53 PM Electronically Signed By:KANDIS Patricio
--- NOTE | 2017-07-25 14:23 | HOSPPROG ---
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 Objective: Vital Signs Temp Pulse Resp BP Pulse Ox 36.3 C 89 18 119/56 L 99 07/25/17 12:00 07/25/17 12:00 07/25/17 12:00 07/25/17 12:00 07/25/17 12:00 Laboratory Results 07/25/17 03:50 07/25/17 03:50 07/24/17 07/25/17 07/26/17 05:59 05:59 05:59 Intake Total 400 Output Total 700 300 Balance -300 -300 PT 18.2 SEC (12.0-15.0) H 07/25/17 03:50 INR 1.49 (0.83-1.16) H 07/25/17 03:50 - Physical Exam Constitutional: no apparent distress, appears nourished Eyes: PERRL, anicteric sclera Ears, Nose, Mouth, Throat: moist mucous membranes, hearing normal Cardiovascular: regular rate and rhythym, systolic murmur, JVD, edema Respiratory: no respiratory distress Gastrointestinal: normoactive bowel sounds Genitourinary: No senior in urethra Skin: warm, normal color Musculoskeletal: full muscle strength ICD10 Worksheet Patient Problems: Problems Problem Status Onset CHF (congestive heart failure) Acute Hyponatremia Acute chronic disease mgmt/transitional care Acute Acute hyponatremia Acute Afib - Atrial fibrillation Acute CAD (coronary artery disease) Acute CAD (coronary artery disease) of artery bypass graft Acute Diabetes Acute Hyperlipidemia Acute Hypertension Acute
[2017-07-25] MEDS ORDERED: WARFARIN SODIUM 5 MG TAB PO ONE (16:00)
[2017-07-25] MEDS ORDERED: WARFARIN SODIUM 2.5 MG TAB PO SCH (16:00)
[2017-07-25] MEDS: CLOPIDOGREL BISULFATE 75 MG TAB PO SCH (20:56)
[2017-07-25] MEDS: LATANOPROST 0.005% 2.5 ML OPHT DROPS EACHEYE SCH (21:08)
--- NOTE | 2017-07-25 23:10 | GCON ---
[f rep st] CONSULTATION CARDIOLOGY CONSULTATION REASON FOR CONSULTATION: Worsening ejection fraction, known ischemic cardiomyopathy, [id number] systolic heart failure. HISTORY OF PRESENT ILLNESS: History is taken from both patient and daughter. The patient is an 81-year-old female with a known history of CAD status post CABG (4 vessels 2006 with most recent angiogram showing occlusion of 3 of her 4 grafts), ischemic cardiomyopathy, atrial fibrillation history of sick sinus syndrome with remote PPM implantation, diabetes, hypertension, and hyperlipidemia. Her primary helicopter pilot is Dr. Tejada of our practice. The patient's daughter informs me over the last few months they have noticed a decline in her mentation status. She has also been noted to have frequent falls , presumably mechanical. They do report that she did have a significant fall on July 13, in which she was noted to have bruising on her right anterior back, from which she reports she has continued pain. They have also noticed increased swelling in her lower extremities, and she seems like she fatigues easily, and she has been reporting shortness of breath with walking from her bed to her bathroom, which they report is less than 10 feet. The patient reports she has no chest pain, but occasionally has mild chest pressure. She denies any palpitations, lightheadedness, near-syncope, or syncopal events. She does report mild orthopnea, denies PND, any near-syncope or syncopal events. Reporting no recent fevers, chills or night sweats. She was seen at her PCPs office yesterday, Dr. Dorado, with whom they brought up all these concerns, and patient has also been known to be more hyponatremic despite increased Lasix dosage, with weight gain. She was recommended to follow up in the emergency department. Upon arrival, she did have a head CT and lumbar CT that showed no new compression fractures, no acute injuries, no acute findings. She also had an abdominal CT showing no obvious posttraumatic abnormality. Initial electrocardiogram done did show a ventricular paced rhythm with probable underlying rhythm of atrial fibrillation. She has had laboratory studies drawn, in which she has been noted to have 2 negative troponins, but her BNP was 11,300. She was also noted to be hyponatremic with sodium at 129. She has been admitted to the PCU by the Hospitalist Service. She has been started on diuretic therapy, in which I have been told that she has been urinating frequently. At the current time, the patient reports no chest pain, but does not feel like her shortness of breath has improved. PAST MEDICAL HISTORY: Includes 1. CAD. 2. Ischemic cardiomyopathy. 3. Atrial fibrillation. 4. Sick sinus syndrome with remote PPM implantation. 5. Diabetes. 6. Hypertension. 7. Hyperlipidemia. 8. Possible mild memory issues. 9. Ischemic cardiomyopathy. 10. History of systolic heart failure. PAST SURGICAL HISTORY: Includes: 1. CABG in 2006, 4 vessels. 2. Coronary catheterization most recently done February 13, 2015 in which she was noted to have a patent [place] to the LAD, SVG to OM, OM-1 and OM-2 were occluded, SVG to PDA was occluded, [place] RCA was patent, [place] circumflex was patent. 3. Remote PPM implantation. 4. PCI in 2009. SOCIAL HISTORY: At this point, noncontributory. SOCIAL HISTORY: She is a . She generally lives with her son who lives in [place]. She has she has a daughter that lives in [place]. She has a daughter that lives in [place]. She is originally from [place] and has lived here for 13-14 years. She does not smoke or use alcohol. ALLERGIES: Sulfa. HOME MEDICATIONS: 1. Warfarin 5 mg p.o. every 2 days. 2. Warfarin 2.5 mg p.o. every 2 days. 3. Potassium chloride 25 mEq p.o. daily. 4. Zofran 4 mg p.o. q.4 hours p.r.n. 5. Xalatan 0.005% 1 drop to each eye q.h.s. 6. Diazepam 5 mg p.o. b.i.d. p.r.n. 7. Clopidogrel 75 mg p.o. q.h.s. 8. Metformin 500 mg p.o. b.i.d. 9. Lansoprazole 30 mg p.o. daily. 10. Lasix 40 mg p.o. daily. 11. Digoxin 0.125 mg p.o. daily. 12. Carvedilol 6.25 mg p.o. b.i.d. 13. Fosamax 70 mg p.o. every Friday at 7 a.m. PHYSICAL EXAMINATION: GENERAL: Thin, short statured, elderly female. She appears to be alert and oriented. Her daughter's is helping to translate, but appears to be oriented to person, place, time, situation. CURRENT VITAL SIGNS: Blood pressure of 119/56, heart rate 89, V paced on the monitor, respirations 18, saturating 99% on 2 L nasal cannula, temperature of 36.3 degrees Celsius. HEENT: Head is normocephalic. Lips and tongue are pink and moist with no signs of cyanosis. Conjunctivae pink. NECK: Trachea is midline, +2 carotid pulses bilateral, no auscultated bruits. JVD 7-8 cm above sternal notch at a 45 -degree angle. LUNGS: Diminished in bases bilateral, but no rhonchi or rales or wheezing noted. No accessory muscle use, no intercostal muscle retraction noted. CARDIAC: Regular rate, S1, S2. A 3/6 diastolic murmur noted along the left sternal border. ABDOMEN: Soft. Nontender. Bowel sounds x4 quadrants. No organomegaly, no palpable masses. SKIN: [place], warm, dry, no cyanosis, no clubbing, +2 to 3 peripheral edema bilateral lower extremities to thighs bilaterally. LABORATORY DATA: Laboratory studies drawn today show WBC of 6.01, hemoglobin of 10.2, hematocrit 30.6, platelet count of 167. INR was noted to be 1.49. Sodium 133, potassium 4.2, chloride 93, CO2 27, BUN 24, creatinine 1.0, glucose 103,. Calcium 9.5, total bilirubin 1.3, AST 26, ALT 35, alkaline phosphate 53, total protein 6.6, albumin 3.6. Noted on admission: The patient has had 2 troponin levels that have been both less than 0.012. ProBNP done on admission was 11,300. UA was negative. LABORATORY STUDIES: 1. Electrocardiogram as mentioned above. 2. Chest x-ray on admission showing no discernible fractures, cardiomegaly with no significant signs of failure. 3. Abdominal CT did note ascites in the abdomen and pelvis, no obvious posttraumatic abnormality identified, it was difficult to exclude active gallbladder disease, there was arthrosclerosis, nonobstructive bilateral nephrolithiasis. 4. Head CT showing moderate atrophy, no acute hemorrhages or hydrocephalies or mass effect. Cerebral arthrosclerosis with no definitive acute infarct. Moderate microvascular ischemic . No skull fracture. No epidural or subdural hematoma. 5. Lumbar spine CT shows osteoporosis with stable old compressions. No acute identified fractures. 6. Echocardiogram done on admission showed normal LV size, no LVH, EF estimated to be 25% to 30% with normal diastolic LV function, LV septal motion consistent with conduction abnormality, LV apex was akinetic with LV inferior to inferior lateral wall akinesis, RV normal size, LA is moderately to severely dilated, RA is mildly dilated, severe mitral annular calcification with moderate mitral valve stenosis with mean gradient of 9 across the valve, aortic valve was calcified, calcification was noted with trivial AI, moderate TR, RVSP was estimated at 53 mmHg, mild TR was noted, no pericardial effusion, left- sided pleural effusion was noted. ASSESSMENT AND PLAN: 1. Systolic heart failure: Echocardiogram showing worsening of ejection fraction from most previous echo on our office note record which was done December 12, in which the ejection fraction was 45%, now currently decreased to between 25% and 30%. The patient was noted +2 to 3 peripheral edema bilateral lower extremities, ascites noted on CT scan, pleural effusion. BNP was noted to be greater than 11,000. She has been started on aggressive IV diuresis of Lasix 40 mg IV b.i.d. Depending on results, we will monitor her In's and Out's closely. She is scheduled for daily weights. Will monitor her electrolytes closely. 2. Coronary artery disease: Patient with known history of coronary artery disease, also a history of percutaneous coronary intervention. Currently denying any chest pain, but does report occasional episode of chest pressure. Negative troponins x2, ventricular paced rhythm. Noted decreased ejection fraction, as mentioned above. She has been also noted to have wall motion abnormalities showing left ventricle is apex is akinetic and left ventricular inferior lateral brown are akinetic. In comparison to previous echocardiogram, it was noted in November of 2016 of having inferior lateral akinesis. We have discussed potential options for re-evaluation of cardiac ischemia, potentially heart catheterization, or re-evaluation with MPI study. Due to her not being asymptomatic, we will work on diuresis first for her heart failure before stress testing. Patient and family are uncertain if they wanted to proceed with further testing at this time. I have asked them to think about it and let us know in followup. Patient has been resumed on home dosage of clopidogrel and she is on beta-rubia of carvedilol. 3. Valvular heart disease: Patient was noted to have with moderate mitral valve stenosis with peak gradient of 9 mmHg. In comparison to previous echocardiogram, this has not worsened. Will continue to monitor. 4. Hyperlipidemia: Patient with noted history of hyperlipidemia. She is currently not on statin therapy, and it is uncertain why. Will do further evaluation of chart to determine why. 5. Ischemic cardiomyopathy: Patient's echo showing worsening ejection fraction in comparison to previous echocardiograms. She is already on carvedilol. We will diurese her, with consideration of starting her on an DOMINIC or an ARB. 6. History of sick sinus syndrome: Patient appears to have pacemaker working which is 100% ventricular paced. Reviewing her records, it does not appear that she has had a device check since September of 2016. With her reported episodes of falling, with uncertainty of syncope, I will have a device check done by [facility] tomorrow morning for evaluations of any possible arrhythmias. 7. Atrial fibrillation: It appears the patient's underlying rhythm is atrial fibrillation. She is well rate controlled on carvedilol and digoxin. I would like to get a digoxin level in the morning. She is on anticoagulation of warfarin, unfortunately she is subtherapeutic. Will continue adjusting dose and monitor daily. 8. Diabetes: Patient is being followed by Hospitalist Service for her diabetes management. 9. Recent fall: Patient reports she has had multiple scans showing no significant damage besides ecchymosis. No new fractures. 10. Code status: Patient's family reports she is a Do Not Resuscitate. Thank you for this consultation. We will be glad to follow along with you. /[id number]/MODL MTDD
[2017-07-26] MEDS: DIAZEPAM 5 MG TAB PO PRN (04:06)
[2017-07-26] MEDS: ACETAMINOPHEN 325 MG TAB PO PRN ×2 (04:06→18:07)
[2017-07-26 04:48] LABS: INR 1.76 (0.83-1.16); PROTIME(PATIENT) 20.6 SEC (12.0-15.0)
[2017-07-26] MEDS ORDERED: MAGNESIUM SULF 1 GM/DEXTROSE 100 ML IV ONE (08:34)
[2017-07-26] MEDS ORDERED: METOLAZONE 2.5 MG TAB PO ONE (09:00)
[2017-07-26] MEDS: FUROSEMIDE 40 MG/4 ML VIAL IVP SCH ×2 (10:03→16:21)
[2017-07-26] MEDS: DIGOXIN 125 MCG TAB PO SCH (10:04)
[2017-07-26] MEDS: POTASSIUM CL 20 MEQ TAB PO SCH (10:04)
[2017-07-26] MEDS: PANTOPRAZOLE SODIUM 40 MG TAB PO SCH (10:04)
[2017-07-26] MEDS: CARVEDILOL 6.25 MG TAB PO SCH ×2 (10:04→17:57)
[2017-07-26] MEDS: INSULIN LISPRO 100 UNIT/ML SC SCH ×3 (10:16→18:09)
[2017-07-26] MEDS ORDERED: PROTOCOL POTASSIUM 1 DOSE MISC PRN (11:16)
[2017-07-26] MEDS ORDERED: PROTOCOL MAGNESIUM 1 DOSE IV PRN (11:16)
--- NOTE | 2017-07-26 12:28 | PDCARPN ---
Cardiology Progress Note Chief Complaint: Patient reports shortness of breath with exertion more than 10 feet Assessment/Plan: Assessment: 81-year-old female with significant past history including CAD status post CABG in 2006 (4 vessels with most recent angiogram showing occlusion of 3 of the 4 grafts), ischemic cardiomyopathy, chronic atrial fibrillation, sick sinus syndrome with remote ppm implantation, diabetes, hypertension, hyperlipidemia. Admitted for worsening shortness of breath, peripheral edema , frequent history of falls, in worsening memory issues on July 24. Noted on admission to have negative troponins x2. ProBNP 11,300. Head and lumbar CT done on 07/24, showing no acute injuries. Abdominal CT done on 07/24 showing diffuse body wall edema us suggesting anasarca. New ascites in the abdomen and pelvis. Echocardiogram done on 07/24/17 showing reduced LVEF 25-30% with LV apex akinetic , and LV inferior/inferior lateral brown are akinetic. Normal RV size , LA is moderately to severely dilated, RV is mildly dilated, severe mitral annular calcification, with moderate stenosis, moderate MR, mean gradient across the valve is 9 mm Hg. Moderate TR , RVSP 53 mm Hg, no pericardial effusion. Today: Patient was evaluated with her 2 daughters, using daughters as wirer maintenance. Patient reports mild chest heaviness when walking, but dissipates. Reports continuation of shortness of breath with exertion. Denies of any palpitations, lightheadedness, near-syncope or syncopal events. No significant weight loss last night despite diuretic therapy. O>I. Laboratory studies show sodium level at 1:33 a.m., unchanged from yesterday. BUN 27, creatinine 1.1. Potassium 4.6, magnesium 1.8. Digoxin level within normal limits at 1.5. Device check done by [employer] [facility] today, showing patient in chronic atrial fibrillation. Device is set for VVI setting. No malignant arrhythmias, no ventricular high rates. Plan: 1. Systolic heart failure acute on chronic: Echocardiogram showing worsening ejection fraction in comparison to echo done in November 2016 (was 45%, most recently 25-30) , patient continues to have +3 peripheral edema bilateral lower extremity, ascites noted in lower extremities , patient's daughter's report significant weight gain at the least 15 lb in the last few months. Continue patient on current dose of carvedilol. Little output with IV Lasix at 40 mg p. o. twice daily, will add a dose of metolazone today with a.m. dose. Monitor electrolytes closely. Have ordered replacement therapy for magnesium level this a.m.. 2. Coronary artery disease: Patient reports occasional chest pressure with exertion. Negative troponins x2. Recent echocardiogram showing left ventricular apex akinetic in left ventricular inferior lateral brown akinetic. In comparison to previous echocardiogram , it was noted inferior lateral brown were akinetic. Have discussed with patient and family about further evaluation of ischemia with , especially with new were decreased ejection fraction , and worsening CHF. Patient refuses to have any further invasive testing, including stress testing to be done, and has chosen all med management only. Continue on current anti-platelet therapy of clopidogrel, beta-urbia as above. 3. Ischemic cardiomyopathy: Worsening ejection fraction in comparison to previous echocardiogram done in November of 2016. Continue on coreg, diuretic therapy as above. Consideration of starting her on James or an Arb before discharge. 4. Chronic Atrial Fibrillation: Patient is well controlled on current medication regime, carvedilol on digoxin, digit level within normal limits. No changes at this time. Did have a discussion with patient and family about anticoagulation, in the past it has been discussed with the family about trying a new NOAC agent, where cost was a concern. Daughters have informed me that this is no longer an issue. They would like to attempt for patient to be placed on Eliquis. Will discontinue warfarin today, patient meets criteria for lower dose of Eliquis at 2.5 mg p.o. twice daily. 5. History of sick sinus syndrome: Remote ppm implantation done , patient appears to be 100% ventricular paced. Device check done on admission, showing device functioning within normal limits. Patient will need to be set up for more routine outpatient follow-up visits. Last device check was greater than a year ago. 6. Valvular heart disease: Patient noted to have moderate mitral valve stenosis with peak gradient of 9 across the valve, also noted to have mild MR, moderate TR, trivial AI. From previous echocardiogram, no worsening disease. 7. Recent fall: Multiple imaging studies done , showing no significant damage besides ecchymoses to left back. No new fractures. 8. History of diabetes: On insulin protocol, being followed by hospital services. 07/26/17 12:25 Subjective: Patient reports mild chest pressure occasionally with significant exertion. Denies of any palpitations, lightheadedness, near-syncope, or syncopal events. Reviewed/Discussed With: family (Patient and her 2 daughters), hospitalist (Dr Barrera), other (Dr Aaron) Objective: Vital Signs (8 Hrs) Temp Pulse Resp BP Pulse Ox 07/26/17 11:20 36.4 C 85 18 127/63 H 99 07/26/17 10:12 97 07/26/17 10:04 77 133/59 H 07/26/17 08:00 36.6 C 84 10 L 110/58 L 98 Intake/Output (24 Hrs) 07/25/17 07/26/17 07/27/17 05:59 05:59 05:59 Intake Total 400 1150 Output Total 700 1300 Balance -300 -150 Intake: Oral (ml) 400 1150 Output: Urine (ml) 700 1300 Bedside Commode 700 1300 Other: Weight 57.6 kg 58 kg Intake Quantity Yes Sufficient Number of Voids Toilet 1 Result Diagrams: 07/25/17 03:50 07/26/17 04:00 Cardiac Labs: Cardiac Lab Results (72 Hrs) 07/25/17 07/24/17 03:50 20:07 Troponin I < 0.012 < 0.012 - Physical Exam Constitutional: no apparent distress Ears, Nose, Mouth, Throat: moist mucous membranes Cardiovascular: no rubs, no gallops, diastolic murmur (Left sternal border, 2/6) , jugular vein distention (6-7 cm above sternal notch at a 45 degree angle), pulses symmetric bilat, No carotid bruit Peripheral Pulses: 1+: dorsalis-pedis (R), dorsalis-pedis (L), 2+: carotid (R), carotid (L) Respiratory: clear to auscultate bilat (Diminished in bases bilateral, no rhonchi, rales, or wheezing noted. No accessary muscle use, no intercostal muscle retraction noted.) Gastrointestinal: normoactive bowel sounds, other (Firm to palpitation) Skin: warm, No no edema (+3 peripheral edema bilateral lower extremities to thighs) Neurologic: AAOx3 Psychiatric: cooperative, interactive, following commands ICD10 Worksheet Patient Problems: Problems Problem Status Onset chronic disease mgmt/transitional care Acute Afib - Atrial fibrillation Acute CAD (coronary artery disease) Acute CAD (coronary artery disease) of artery bypass graft Acute Hypertension Acute Hyperlipidemia Acute Diabetes Acute Acute hyponatremia Acute Hyponatremia Acute CHF (congestive heart failure) Acute
--- NOTE | 2017-07-26 15:24 | HOSPPROG ---
Hospitalist Progress Note Assessment/Plan: * Acute systolic CHF - EF worsened - now 25% -IV lasix, additional metolazone today -4+ edema including ascites -add ACEI before discharge * Afib/PCM -family desires warfarin change to Eliquis -dig, coreg * CAD/CABG/stents - 3/4 grafts occluded on last cath -CP with exertion - stable angina -refuses stress testing - no intervention * Back pain post fall -CT lumbar negative -home with 24 hour supervision from family Subjective: No new complaints. Objective: Vital Signs Temp Pulse Resp BP Pulse Ox 36.6 C 89 19 129/66 H 99 07/26/17 15:15 07/26/17 15:15 07/26/17 15:15 07/26/17 15:15 07/26/17 15:15 Laboratory Results 07/25/17 03:50 07/26/17 04:00 07/25/17 07/26/17 07/27/17 05:59 05:59 05:59 Intake Total 400 1150 Output Total 700 1300 Balance -300 -150 PT 20.6 SEC (12.0-15.0) H 07/26/17 04:00 INR 1.76 (0.83-1.16) H 07/26/17 04:00 case d/w elv[facility] - worsened EF but work-up declined ECHO - EF 25% CT abd - possible cirrhosis - Physical Exam Constitutional: no apparent distress, appears nourished, not in pain Ears, Nose, Mouth, Throat: moist mucous membranes, hearing normal, ears appear normal, no oral mucosal ulcers Cardiovascular: edema (2+) Respiratory: no respiratory distress, no rales or rhonchi, clear to auscultation Gastrointestinal: normoactive bowel sounds, soft, non-tender abdomen, ascites, distension, No guarding, No rebound Skin: no rashes or abrasions, no fluctuance, no induration Neurologic: AAOx3, sensation intact bilaterally Psychiatric: interacting appropriately, not anxious, not encephalopathic, thought process linear ICD10 Worksheet Patient Problems: Problems Problem Status Onset CHF (congestive heart failure) Acute Hyponatremia Acute chronic disease mgmt/transitional care Acute Acute hyponatremia Acute Afib - Atrial fibrillation Acute CAD (coronary artery disease) Acute CAD (coronary artery disease) of artery bypass graft Acute Diabetes Acute Hyperlipidemia Acute Hypertension Acute
[2017-07-26] MEDS: metFORMIN HCL 500 MG TAB PO SCH (17:57)
[2017-07-26] MEDS ORDERED: POTASSIUM CL 10 MEQ TAB PO ONE (20:39)
[2017-07-26] MEDS: LATANOPROST 0.005% 2.5 ML OPHT DROPS EACHEYE SCH (21:23)
[2017-07-26] MEDS: CLOPIDOGREL BISULFATE 75 MG TAB PO SCH (21:24)
[2017-07-26] MEDS: APIXABAN 2.5 MG TAB PO SCH (21:24)
[2017-07-27] MEDS: DIAZEPAM 5 MG TAB PO PRN (03:25)
[2017-07-27 04:42] LABS: INR 2.46 (0.83-1.16); PROTIME(PATIENT) 26.6 SEC (12.0-15.0)
[2017-07-27] MEDS ORDERED: POTASSIUM CL 10 MEQ TAB PO ONE ×2 (06:41→19:47)
[2017-07-27] MEDS ORDERED: MAGNESIUM SULF 1 GM/DEXTROSE 100 ML IV ONE (06:42)
[2017-07-27] MEDS: INSULIN LISPRO 100 UNIT/ML SC SCH ×3 (08:41→18:59)
[2017-07-27] MEDS: ACETAMINOPHEN 325 MG TAB PO PRN (09:01)
[2017-07-27] MEDS: DIGOXIN 125 MCG TAB PO SCH (09:01)
[2017-07-27] MEDS: FUROSEMIDE 40 MG/4 ML VIAL IVP SCH ×2 (09:01→15:53)
[2017-07-27] MEDS: metFORMIN HCL 500 MG TAB PO SCH ×2 (09:02→17:56)
[2017-07-27] MEDS: CARVEDILOL 6.25 MG TAB PO SCH ×2 (09:02→17:56)
[2017-07-27] MEDS: PANTOPRAZOLE SODIUM 40 MG TAB PO SCH (09:02)
[2017-07-27] MEDS: APIXABAN 2.5 MG TAB PO SCH ×2 (09:02→23:31)
--- NOTE | 2017-07-27 10:07 | HOSPPROG ---
Hospitalist Progress Note Assessment/Plan: * Acute systolic CHF - EF worsened - now 25% -IV lasix -add ACEI before discharge -still quite volume up * Ascites -check US to quantify - consider paracentesis if large amount -? cirrhotic liver -add spironolactone * Afib/PCM -hold eliquis for possible procedure -dig, coreg * CAD/CABG/stents - 3/4 grafts occluded on last cath -CP with exertion - stable angina -refuses stress testing - no intervention * Back pain post fall -CT lumbar negative -home with 24 hour supervision from family Subjective: No new complaints, up all night urinating Objective: Vital Signs Temp Pulse Resp BP Pulse Ox 36.6 C 85 95 H 116/63 2 L 07/27/17 07:38 07/27/17 09:01 07/27/17 07:38 07/27/17 09:02 07/27/17 07:38 Laboratory Results 07/25/17 03:50 07/27/17 04:11 07/26/17 07/27/17 07/28/17 05:59 05:59 05:59 Intake Total 1150 1220 Output Total 1300 1700 100 Balance -150 -480 -100 PT 26.6 SEC (12.0-15.0) H 07/27/17 04:11 INR 2.46 (0.83-1.16) H 07/27/17 04:11 - Physical Exam Constitutional: no apparent distress, appears nourished, not in pain Cardiovascular: regular rate and rhythym, no murmur, rub, or gallop, edema (2+) Respiratory: no respiratory distress, no rales or rhonchi, clear to auscultation Gastrointestinal: normoactive bowel sounds, soft, non-tender abdomen, no palpable masses, ascites Skin: no rashes or abrasions, no fluctuance, no induration Neurologic: AAOx3, sensation intact bilaterally Psychiatric: interacting appropriately, not anxious, not encephalopathic, thought process linear ICD10 Worksheet Patient Problems: Problems Problem Status Onset CHF (congestive heart failure) Acute Hyponatremia Acute chronic disease mgmt/transitional care Acute Acute hyponatremia Acute Afib - Atrial fibrillation Acute CAD (coronary artery disease) Acute CAD (coronary artery disease) of artery bypass graft Acute Diabetes Acute Hyperlipidemia Acute Hypertension Acute
--- NOTE | 2017-07-27 10:12 | SOAPPROG ---
RANDELL Progress Note Assessment/Plan: 1. Systolic heart failure acute on chronic: Pt presents with an acute on chronic CHF exacerbation. Echocardiogram demonstrates a decline in her LVEF from 45% to 25/30% since November2016. Pt has diuresed approximately 2 lbs overnight. Her Cr has increased from 1.1 to 1.3. She remains volume overloaded. --> continue diureses at current level --> place digoxin on hold given risk of toxicity given declining renal function. --> Consider grace or arb. 2. Coronary artery disease: Patient reports occasional chest pressure with exertion. Troponin wnl x 2. Recent echocardiogram demonstrates a decline in LVEF and new apical HK. Patient is not interested in further evaluation either invasive or non-invasive. Continue medical management with plavix and coreg. No asa given eliquis. 3. Chronic Atrial Fibrillation: Pt has chronic A-fib. She is managed with a rate control and anticoagulation strategy. --> continue coreg and eliquis --> Digoxin on hold given dig level of 1.5 and declining renal function. 4. History of sick sinus syndrome: Remote ppm implantation done , patient appears to be 100% ventricular paced. Device check done on admission, showing device functioning within normal limits. Patient will need to be set up for more routine outpatient follow-up visits. Last device check was greater than a year ago. 5. Valvular heart disease: Patient noted to have moderate mitral valve stenosis with peak gradient of 9 across the valve, also noted to have mild MR, moderate TR, trivial AI. Subjective: + MAYNARD limited ambulation + orthopnea No chest pain overnight Objective: Vital Signs Temp Pulse Resp BP Pulse Ox 36.6 C 85 95 H 116/63 2 L 07/27/17 07:38 07/27/17 09:01 07/27/17 07:38 07/27/17 09:02 07/27/17 07:38 Laboratory Results 07/25/17 03:50 07/27/17 04:11 07/26/17 07/27/17 07/28/17 05:59 05:59 05:59 Intake Total 1150 1220 Output Total 1300 1700 100 Balance -150 -480 -100 PT 26.6 SEC (12.0-15.0) H 07/27/17 04:11 INR 2.46 (0.83-1.16) H 07/27/17 04:11 Physical Exam - Physical Exam General Appearance: alert, mild distress Respiratory: crackles Cardiac/Chest: regular rate, rhythm, systolic murmur Abdomen: distended Neuro/Psych: alert ICD10 Worksheet Patient Problems: Problems Problem Status Onset CHF (congestive heart failure) Acute Hyponatremia Acute chronic disease mgmt/transitional care Acute Acute hyponatremia Acute Afib - Atrial fibrillation Acute CAD (coronary artery disease) Acute CAD (coronary artery disease) of artery bypass graft Acute Diabetes Acute Hyperlipidemia Acute Hypertension Acute
[2017-07-27] MEDS: SPIRONOLACTONE 25 MG TAB PO SCH (11:10)
[2017-07-27] MEDS: CLOPIDOGREL BISULFATE 75 MG TAB PO SCH (20:04)
[2017-07-27] MEDS: LATANOPROST 0.005% 2.5 ML OPHT DROPS EACHEYE SCH (20:07)
[2017-07-28] MEDS ORDERED: ALENDRONATE SODIUM 70 MG TAB PO SCH (07:00)
[2017-07-28] MEDS ORDERED: POTASSIUM CL 10 MEQ TAB PO ONE ×2 (07:58→20:12)
[2017-07-28] MEDS ORDERED: MAGNESIUM SULF 1 GM/DEXTROSE 100 ML IV ONE (08:16)
--- NOTE | 2017-07-28 09:12 | SOAPPROG ---
RANDELL Progress Note Assessment/Plan: 1. Systolic heart failure acute on chronic: Pt presents with an acute on chronic CHF exacerbation. Echocardiogram demonstrates a decline in her LVEF from 45% to 25/30% since November2016. O > I by 1.6L. Edema improved. Cr stable over last 24 hrs. Pt remains volume overloaded. --> continue diureses at current level --> Consider grace or arb. 2. Coronary artery disease: Patient reports occasional chest pressure with exertion. Troponin wnl x 2. Recent echocardiogram demonstrates a decline in LVEF and new apical HK. Patient is not interested in further evaluation either invasive or non-invasive. Continue medical management with plavix and coreg. No asa given eliquis. 3. Chronic Atrial Fibrillation: Pt has chronic A-fib. She is managed with a rate control and anticoagulation strategy. --> continue coreg and eliquis --> resume digoxin given cr stable over last 24 hrs. 4. History of sick sinus syndrome: Pt has a history of SSS. She is s/p pacemaker placment. Pacemaker check on admission demonstrates normal function. 5. Valvular heart disease: Patient noted to have moderate mitral valve stenosis with peak gradient of 9 across the valve, also noted to have mild MR, moderate TR, trivial AI. Subjective: + dyspnea edema improved ambulating 2 laps slept well. + orthopnea Objective: Vital Signs Temp Pulse Resp BP Pulse Ox 36.3 C 78 18 112/65 97 07/28/17 08:00 07/28/17 08:00 07/28/17 08:00 07/28/17 08:00 07/28/17 08:00 Laboratory Results 07/25/17 03:50 07/28/17 03:56 07/27/17 07/28/17 07/29/17 05:59 05:59 05:59 Intake Total 1220 1200 Output Total 1700 2800 600 Balance -480 -1600 -600 PT 26.6 SEC (12.0-15.0) H 07/27/17 04:11 INR 2.46 (0.83-1.16) H 07/27/17 04:11 Physical Exam - Physical Exam General Appearance: alert, no apparent distress Respiratory: chest non-tender Cardiac/Chest: regular rate, rhythm, systolic murmur Abdomen: soft Extremities: pedal edema ICD10 Worksheet Patient Problems: Problems Problem Status Onset CHF (congestive heart failure) Acute Hyponatremia Acute chronic disease mgmt/transitional care Acute Acute hyponatremia Acute Afib - Atrial fibrillation Acute CAD (coronary artery disease) Acute CAD (coronary artery disease) of artery bypass graft Acute Diabetes Acute Hyperlipidemia Acute Hypertension Acute
[2017-07-28] MEDS: INSULIN LISPRO 100 UNIT/ML SC SCH ×4 (09:25→18:52)
[2017-07-28] MEDS: CARVEDILOL 6.25 MG TAB PO SCH ×2 (09:27→18:29)
[2017-07-28] MEDS: PANTOPRAZOLE SODIUM 40 MG TAB PO SCH (09:27)
[2017-07-28] MEDS: metFORMIN HCL 500 MG TAB PO SCH ×2 (09:27→18:29)
[2017-07-28] MEDS: SPIRONOLACTONE 25 MG TAB PO SCH (09:27)
[2017-07-28] MEDS: FUROSEMIDE 40 MG/4 ML VIAL IVP SCH ×2 (09:28→15:50)
[2017-07-28] MEDS: APIXABAN 2.5 MG TAB PO SCH ×2 (11:51→22:17)
--- NOTE | 2017-07-28 13:14 | HOSPPROG ---
Hospitalist Progress Note Assessment/Plan: * Acute systolic CHF - EF worsened - now 25% -IV lasix -add ACEI before discharge -still quite volume up * Ascites - resolved by US -? cirrhotic liver -add spironolactone * Afib/PCM -change warfarin to eliquis -dig, coreg * CAD/CABG/stents - 3/4 grafts occluded on last cath -CP with exertion - stable angina -refuses stress testing - no intervention * Back pain post fall -CT lumbar negative -home with 24 hour supervision from family Subjective: no new complaints Objective: Vital Signs Temp Pulse Resp BP Pulse Ox 36.3 C 78 18 112/65 97 07/28/17 08:00 07/28/17 08:00 07/28/17 08:00 07/28/17 08:00 07/28/17 08:00 Laboratory Results 07/25/17 03:50 07/28/17 03:56 07/27/17 07/28/17 07/29/17 05:59 05:59 05:59 Intake Total 1220 1200 Output Total 1700 2800 600 Balance -480 -1600 -600 PT 26.6 SEC (12.0-15.0) H 07/27/17 04:11 INR 2.46 (0.83-1.16) H 07/27/17 04:11 - Physical Exam Constitutional: no apparent distress, appears nourished, not in pain Cardiovascular: regular rate and rhythym, edema (2+), No systolic murmur, No JVD , No tachycardia Respiratory: no respiratory distress, no rales or rhonchi, clear to auscultation Gastrointestinal: normoactive bowel sounds, soft, non-tender abdomen, no palpable masses Skin: no rashes or abrasions, no fluctuance, no induration Neurologic: AAOx3, sensation intact bilaterally Psychiatric: interacting appropriately, not anxious, not encephalopathic, thought process linear ICD10 Worksheet Patient Problems: Problems Problem Status Onset CHF (congestive heart failure) Acute Hyponatremia Acute chronic disease mgmt/transitional care Acute Acute hyponatremia Acute Afib - Atrial fibrillation Acute CAD (coronary artery disease) Acute CAD (coronary artery disease) of artery bypass graft Acute Diabetes Acute Hyperlipidemia Acute Hypertension Acute
--- NOTE | 2017-07-28 16:46 | ASMTCMCOM ---
CM Note CM Note Notes: DC plan still to go home w/[facility]. Received call from [employer] today inquiring about possibility of HCBS services at home. Informed Elyse arellano/Paul Dorantes who will screen pt tomorrow for [facility] to see if she would qualify. Pt lives at home w/son, Lovely who is there some of the time but also has job. Daughter, cate lives in [facility]. Pt also has daughter I spoke w/today who is visiting from [place]; she will be staying with her Mom for about a month. Her albanian was somewhat limited and said it would be good if we could talk w/Lovely or Cate when they are here tomorrow. CM will follow. Date Signed: 07/28/2017 04:45 PM Electronically Signed By:Brenda Ken RN
[2017-07-28] MEDS: CLOPIDOGREL BISULFATE 75 MG TAB PO SCH (22:17)
[2017-07-28] MEDS: LATANOPROST 0.005% 2.5 ML OPHT DROPS EACHEYE SCH (22:18)
[2017-07-29] MEDS: ACETAMINOPHEN 325 MG TAB PO PRN ×2 (03:24→23:54)
[2017-07-29] MEDS: DIAZEPAM 5 MG TAB PO PRN (03:24)
[2017-07-29] MEDS: FUROSEMIDE 40 MG/4 ML VIAL IVP SCH ×2 (08:02→15:36)
[2017-07-29] MEDS ORDERED: MAGNESIUM SULF 1 GM/DEXTROSE 100 ML IV ONE (08:27)
[2017-07-29] MEDS: INSULIN LISPRO 100 UNIT/ML SC SCH ×3 (09:11→18:25)
[2017-07-29] MEDS: APIXABAN 2.5 MG TAB PO SCH ×2 (09:11→22:03)
[2017-07-29] MEDS: CARVEDILOL 6.25 MG TAB PO SCH ×2 (09:11→18:29)
[2017-07-29] MEDS: metFORMIN HCL 500 MG TAB PO SCH ×2 (09:11→18:30)
[2017-07-29] MEDS: SPIRONOLACTONE 25 MG TAB PO SCH (09:11)
[2017-07-29] MEDS: PANTOPRAZOLE SODIUM 40 MG TAB PO SCH (09:11)
[2017-07-29] MEDS: DIGOXIN 125 MCG TAB PO SCH (10:38)
--- NOTE | 2017-07-29 14:05 | HOSPPROG ---
Hospitalist Progress Note Assessment/Plan: * Acute systolic CHF - EF worsened - now 25% -IV lasix -add ACEI - lisinopril 2.5mg -still volume up - one more day IV diuresis * Ascites - resolved by US -? cirrhotic liver -add spironolactone * Afib/PCM -change warfarin to eliquis -dig, coreg * CAD/CABG/stents - 3/4 grafts occluded on last cath -CP with exertion - stable angina -refuses stress testing - no intervention * Back pain post fall -CT lumbar negative -home with 24 hour supervision from family Subjective: No new complaints. Objective: Vital Signs Temp Pulse Resp BP Pulse Ox 36.3 C 77 15 116/65 90 L 07/29/17 13:15 07/29/17 13:15 07/29/17 13:15 07/29/17 13:15 07/29/17 13:15 Laboratory Results 07/25/17 03:50 07/29/17 04:00 07/28/17 07/29/17 07/30/17 05:59 05:59 05:59 Intake Total 1200 700 Output Total 2800 875 Balance -1600 -175 PT 26.6 SEC (12.0-15.0) H 07/27/17 04:11 INR 2.46 (0.83-1.16) H 07/27/17 04:11 - Physical Exam Constitutional: no apparent distress, appears nourished, not in pain Cardiovascular: regular rate and rhythym, no murmur, rub, or gallop, edema (2+) Respiratory: no respiratory distress, no rales or rhonchi, clear to auscultation Gastrointestinal: normoactive bowel sounds, soft, non-tender abdomen, no palpable masses Skin: no rashes or abrasions, no fluctuance, no induration Neurologic: AAOx3, sensation intact bilaterally Psychiatric: interacting appropriately, not anxious, not encephalopathic, thought process linear ICD10 Worksheet Patient Problems: Problems Problem Status Onset CHF (congestive heart failure) Acute Hyponatremia Acute chronic disease mgmt/transitional care Acute Acute hyponatremia Acute Afib - Atrial fibrillation Acute CAD (coronary artery disease) Acute CAD (coronary artery disease) of artery bypass graft Acute Diabetes Acute Hyperlipidemia Acute Hypertension Acute
--- NOTE | 2017-07-29 16:15 | ASMTCMCOM ---
CM Note CM Note Notes: Patient will likely discharge tomorrow. She is current with [facility], and we will need to order PT/OT/RN/SW upon discharge. Transitional Care has been working with family to ensure that they have the necessary DME. I sent an RX and progress notes to [facility] to order a bedside commode. Patient lives with son and has a daughter in town visiting until 08/10. She has follow up appointments scheduled with her PCP and Cardiology. Date Signed: 07/29/2017 04:15 PM Electronically Signed By:Lesly Mobley RN
[2017-07-29] MEDS: CLOPIDOGREL BISULFATE 75 MG TAB PO SCH (22:03)
[2017-07-29] MEDS: LATANOPROST 0.005% 2.5 ML OPHT DROPS EACHEYE SCH (22:04)
[2017-07-30 05:47] VITALS: O2SAT 94
[2017-07-30] MEDS ORDERED: MAGNESIUM SULF 1 GM/DEXTROSE 100 ML IV ONE (07:00)
[2017-07-30] MEDS ORDERED: POTASSIUM CL 10 MEQ TAB PO ONE ×3 (07:00→09:30)
[2017-07-30 08:28] VITALS: BP 122/59; PULSE 76; RESP 14; TEMP 97.4
[2017-07-30] MEDS ORDERED: LISINOPRIL 2.5 MG TAB PO SCH (09:00)
[2017-07-30] MEDS: FUROSEMIDE 40 MG/4 ML VIAL IVP SCH ×2 (09:38→15:06)
[2017-07-30] MEDS: APIXABAN 2.5 MG TAB PO SCH (09:39)
[2017-07-30] MEDS: CARVEDILOL 6.25 MG TAB PO SCH (09:39)
[2017-07-30] MEDS: metFORMIN HCL 500 MG TAB PO SCH (09:39)
[2017-07-30] MEDS: SPIRONOLACTONE 25 MG TAB PO SCH (09:39)
[2017-07-30] MEDS: PANTOPRAZOLE SODIUM 40 MG TAB PO SCH (09:39)
[2017-07-30] MEDS: DIGOXIN 125 MCG TAB PO SCH (09:39)
[2017-07-30] MEDS: INSULIN LISPRO 100 UNIT/ML SC SCH ×2 (09:40→13:57)
--- NOTE | 2017-07-30 12:45 | PDDCSUM ---
Discharge Summary Discharge Summary: 81 yo female with hx of CHF admitted with volume overload. Diuresed with IV diuretics, now on PO. Please see below for details per problem list. I offered then another overnight to transition to PO diuretics but given that the pt's daughter is a pharmacist and they have a good support system at home as well as home health, they politely objected. Volume status is much better. Mild elevated Cr. DDX * Acute systolic CHF - EF worsened - now 25% -IV lasix-->change to Lasix 40mg daily -add ACEI - lisinopril 2.5mg -Spironolactone 25mg daily -coreg -still volume up - one more day IV diuresis * Ascites - resolved by US -? cirrhotic liver vs due to the CHF. much improved. -diuretics per above * Afib/PCM -change warfarin to eliquis -dig, coreg * CAD/CABG/stents - 3/4 grafts occluded on last cath -CP with exertion - stable angina -refuses stress testing - no intervention * Back pain post fall -CT lumbar negative -home with 24 hour supervision from family * Deconditioning: PT/OT/HHC -The pt is confined to a level 1 house. There is no bathroom on the floor. Needs urinal. *Hypoxemia: needs O2. Exam: VSS NAD ALERT RRR CTA B S/NT/ND 1+ LE EDEMA MEDS: SEE MED REC TOTAL TIME SPENT ON D/C IS 45 MINS
--- NOTE | 2017-07-30 12:47 | PDHOMEO2F ---
Home Oxygen Face to Face Home Orders: I certify that a physician or a nurse practitioner or physician's secretary administrative assistant has had a [id number] encounter with this patient on the date of this order due to the diagnosis listed, which relates to the primary reason the patient requires home oxygen. Alternative treatments have been tried, or considered, and deemed ineffective. It is anticipated that supplemental oxygen will result in improvement with treatment. Home oxygen qualifying diagnosis: HYPOXEMIA, CHF SpO2 on room air (%): 82 Frequency of home oxygen needed: continuous Home oxygen liters per minute: 2 Home oxygen delivery device: nasal cannula Concentrator: Yes E-tanks for mobility and back up: Yes If ordering portable O2, is the patient mobile in the home?: Yes I certify that, based on these findings, the home oxygen is medically necessary for this patient for the following length of time. Length of time home oxygen needed: 99 years
--- NOTE | 2017-07-30 12:48 | PDIAF ---
- Diagnosis Diagnosis: CHF-SYSTOLIC, VOLUME OVERLOAD Code Status: Do Not Resuscitate - Medication Management Discharge Medications: Medications to Continue on Transfer Clopidogrel Bisulfate [Clopidogrel] 75 mg PO HS 09/14/13 [Last Taken 07/23/17] Lansoprazole [Lansoprazole 30 mg tab] 30 mg PO DAILY 09/14/13 [Last Taken ] metFORMIN HCL [Glucophage 500 mg (*)] 500 mg PO BIDMEAL 09/14/13 [Last Taken 06/12] Carvedilol [Coreg (*)] 6.25 mg PO BIDMEAL #60 tab 09/19/13 [Last Taken 07/24/17] Digoxin [Lanoxin 0.125 mg] 0.125 mg PO DAILY10 #30 tab 09/19/13 [Last Taken 06/12] Diazepam [Valium 5 MG (*)] 5 mg PO BID PRN #10 tab 05/03/14 [Last Taken Unknown] Alendronate Sodium [Fosamax 70 MG (*)] 70 mg PO MO@0700 05/12/15 [Last Taken ] Latanoprost 0.005% [Xalatan 0.005% (*)] 1 drops EACHEYE HS 05/12/15 [Last Taken 07/23/17] Potassium Chloride [Klor-Con] 25 meq PO DAILY 05/12/15 [Last Taken 07/24/17] Furosemide [Lasix 40 MG (*)] 40 mg PO DAILY 07/24/17 [Last Taken 07/24/17] Ondansetron Odt [Zofran Odt 4 mg (*)] 4 mg PO Q4H PRN 07/24/17 [Last Taken Unknown] Apixaban [Eliquis] 2.5 mg PO BID #60 tab 07/30/17 [Last Taken Unknown] Lisinopril [Zestril 2.5 mg (*)] 2.5 mg PO DAILY #30 tab 07/30/17 [Last Taken Unknown] Spironolactone [Aldactone 25 MG (*)] 25 mg PO DAILY #30 tab 07/30/17 [Last Taken Unknown] Discharge Medications: Refer to the Discharge Home Medication list for PRN reason. - Orders Services needed: Home Care, Registered Nurse, Master Oil Extractor, Physical Therapy, Occupational Therapy Home Care Face to Face: I certify that this patient was under my care and that I had the required [id number] encounter meeting the encounter requirements on the discharge day. My findings support the fact that the patient is homebound as defined in Home Care Face to Face Continued: [facility] Chapter 7 Medicare Benefits Manual 30.1.1 , The condition of the patient is such that there exists a normal inability to leave home and consequently, leaving home would require a considerable and taxing effort. Isolation Type: None Diet Recommendation: cardiac -low fat low salt Diet Texture: Regular Texture Diet - Follow Up Care Current Providers and Referrals: Laurie Dorado MD [Primary Care Provider] - As per Instructions
--- NOTE | 2017-07-30 13:50 | ASMTCMCOM ---
CM Note CM Note Notes: CM sent MD note stating that pt will need a commode to [facility]. Date Signed: 07/30/2017 01:49 PM Electronically Signed By:KANDIS Patricio
== END 2017-07-30 16:35 | disposition home health service (06) | DRG 293 ==
LOC: F2W 17:27
PROVIDERS: ADMIT Family Medicine; ATTEND Family Medicine
DX: I50.23 Acute on chronic systolic (congestive) heart failure (principal); I48.2 Chronic atrial fibrillation; I25.10 Atherosclerotic heart disease of native coronary artery without angina pectoris; M54.9 Dorsalgia, unspecified; R09.02 Hypoxemia; K74.60 Unspecified cirrhosis of liver; I25.5 Ischemic cardiomyopathy; I10 Essential (primary) hypertension; E11.9 Type 2 diabetes mellitus without complications; E78.5 Hyperlipidemia, unspecified; I34.0 Nonrheumatic mitral (valve) insufficiency; Z95.5 Presence of coronary angioplasty implant and graft; Z95.1 Presence of aortocoronary bypass graft; Z95.0 Presence of cardiac pacemaker; Z91.81 History of falling; Z79.02 Long term (current) use of antithrombotics/antiplatelets; Z79.01 Long term (current) use of anticoagulants; Z66 Do not resuscitate
CPT/HCPCS: 82947-QW; 97116-GP; 97161-GP; 97166-GO; 97530-GO; 97530-GP; 97535-GO; G8978-GP-CJ; G8979-GP-CI; G8987-GO-CJ; G8988-GO-CI; J1815; J1940; J3475; Q9967

== ENCOUNTER 2017-09-04 19:27 | Inpatient (IN) | payer OTHER, MEDICAID ==
[2017-09-04] MEDS ORDERED: NS 500 ML IV ONE (19:51)
--- NOTE | 2017-09-04 19:54 | CPEKG ---
Heart Rate: 87 RR Interval: 690 P-R Interval: 198 QRSD Interval: 84 QT Interval: 340 QTC Interval: 409 P [place]: 0 QRS [place]: 66 T Wave [place]: -79 EKG Severity - ABNORMAL ECG - EKG Impression: VENTRICULAR-PACED COMPLEXES EKG Impression: LOW VOLTAGE IN FRONTAL LEADS EKG Impression: NONSPECIFIC REPOL ABNORMALITY, DIFFUSE LEADS EKG Impression: Similar to previous Electronically Signed By: Tristan Nunez 04-Sep-2017 19:54:37
--- NOTE | 2017-09-04 19:56 | EDPHY ---
H & P Stated Complaint: "low sodium", not feeling well Time Seen by Provider: 09/04/17 19:43 HPI/ROS: CHIEF COMPLAINT: Low sodium HISTORY OF PRESENT ILLNESS: The patient is an 81-year-old female from [place] with a history of congestive heart failure , pacemaker and frequent episodes of hyponatremia who comes to the emergency department because she had an abnormal lab value this afternoon of sodium 118. Family states that she has been feeling weak and confused and has almost fallen. No seizures. No chest pain or shortness of breath. No fevers. The symptoms began over the last few days. REVIEW OF SYSTEMS: Constitutional: denies: chills, fever, recent illness, recent injury EENTM: denies: blurred vision, double vision, nose congestion Respiratory: denies: cough, shortness of breath Cardiac: denies: chest pain, irregular heart rate, lightheadedness, palpitations Gastrointestinal/Abdominal: denies: abdominal pain, diarrhea, nausea, vomiting, blood streaked stools Genitourinary: denies: dysuria, frequency, hematuria, pain Musculoskeletal: denies: joint pain, muscle pain Skin: denies: lesions, rash, jaundice, bruising Neurological: See HPI Hematologic/Lymphatic: denies: blood clots, easy bleeding, easy bruising Immunologic/allergic: denies: HIV/AIDS, transplant EXAM: GENERAL: confused, does not talk. HEAD: Atraumatic, normocephalic. EYES: Pupils equal round and reactive to light, extraocular movements intact, sclera anicteric, conjunctiva are normal. ENT: TMs normal, nares patent, oropharynx clear without exudates. Moist mucous membranes. NECK: Normal range of motion, supple without lymphadenopathy or JVD. LUNGS: Breath sounds clear to auscultation bilaterally and equal. No wheezes rales or rhonchi. HEART: Regular rate and rhythm without murmurs, rubs or gallops. ABDOMEN: Soft, nontender, normoactive bowel sounds. No guarding, no rebound. No masses appreciated. BACK: No CVA tenderness, no spinal tenderness, step-offs or deformities EXTREMITIES: Lower extremity edema, chronic NEUROLOGICAL: Cranial nerves II through XII grossly intact. Normal speech, normal gait. 5/5 strength, normal movement in all extremities, normal sensation PSYCH: Quiet, not communicating SKIN: Warm, dry, normal turgor, no visible rashes or lesions. Source: Patient, Family Exam Limitations: Language barrier (Family interpreting) - Personal History Current Tetanus Diphtheria and Acellular Pertussis (TDAP): Yes Tetanus Vaccine Date: 2011 - Medical/Surgical History Hx Asthma: No Hx Chronic Respiratory Disease: No Hx Diabetes: Yes Hx Cardiac Disease: Yes Hx Renal Disease: No Hx Cirrhosis: No Hx Alcoholism: No Hx HIV/AIDS: No Hx Splenectomy or Spleen Trauma: No Other PMH: Congestive heart failure, pacemaker, cad, dm2, afib, - Family History Significant Family History: No pertinent family hx - Social History Smoking Status: Never smoked Constitutional: Initial Vital Signs Temperature (C) 36.3 C 09/04/17 19:37 Heart Rate 80 09/04/17 19:37 Respiratory Rate 18 09/04/17 19:37 Blood Pressure 115/68 09/04/17 19:37 O2 Sat (%) 96 09/04/17 19:37 O2 Delivery Mode Room Air Allergies/Adverse Reactions: Sulfa (Sulfonamide Antibiotics) Allergy (Intermediate, Verified 09/04/17 19:37) Rash Home Medications: Medication Instructions Recorded Clopidogrel Bisulfate [Clopidogrel] 75 mg PO HS 09/14/13 Lansoprazole [Lansoprazole 30 mg 30 mg PO DAILY 09/14/13 tab] Digoxin [Lanoxin 0.125 mg] 0.125 mg PO DAILY10 #30 tab 09/19/13 Latanoprost 0.005% [Xalatan 0.005% 1 drops EACHEYE HS 05/12/15 (*)] Furosemide [Lasix 40 MG (*)] 80 - 120 mg PO DAILY 07/24/17 Aspirin EC [Aspirin EC 81 mg (*)] 81 mg PO DAILY 09/04/17 Carvedilol [Coreg (*)] 3.125 mg PO BIDMEAL 09/04/17 Furosemide [Lasix 40 MG (*)] 40 mg PO DAILY@13 09/04/17 Potassium Cl [Klor-Con 20 meq (*)] 20 meq PO DAILY 09/04/17 Valsartan [Diovan (*)] 40 mg PO DAILY 09/04/17 Medical Decision Making - Diagnostics EKG Interpretation: An EKG obtained and was read and documented in trace view. Please see trace view for full reading and report. Ventricular paced rhythm, LVH with repolarization abnormality, similar to previous Imaging Results: Imaging Impressions Chest X-Ray 09/04/17 19:52 Impression: Suspect congestive heart failure, without neli pulmonary edema. Imaging: Discussed imaging studies w/ housecalls nurse Radiologist ED Course/Re-evaluation: 9:00 p.m. I spoke with Dr. Maradiaga who will admit to the ICU. She does not want to have any more IV fluids and would like to check osmolality and recheck chemistry. Differential Diagnosis: Partial list of the Differential diagnosis considered include but were not limited to; hyponatremia, fluid overload and although unlikely based on the history and physical exam, I also considered fever, pericardial effusion, pneumonia, neurologic disease. Critical Care Time: Critical care time spent by me, Dr. Nunez exclusive with this patient was 45 minutes, exclusive of the PA time exclusive of procedures. The organ system that was at risk was neurologic and I gave IV fluids, constipation, admission to prevent worsening of the patient's condition - Data Points Laboratory Results: Laboratory Results 09/04/17 19:53 09/04/17 19:53 09/04/17 09/04/17 09/04/17 19:53 19:53 19:53 WBC 5.22 10^3/uL 10^3/uL (3.80-9.50) RBC 3.47 10^6/uL L 10^6/uL (4.18-5.33) Hgb 9.6 g/dL L g/dL (12.6-16.3) Hct 29.8 % L % (38.0-47.0) MCV 85.9 fL fL (81.5-99.8) MCH 27.7 pg L pg (27.9-34.1) MCHC 32.2 g/dL L g/dL (32.4-36.7) RDW 15.7 % H % (11.5-15.2) Plt Count 173 10^3/uL 10^3/uL (150-400) MPV 9.9 fL fL (8.7-11.7) Neut % (Auto) 68.5 % % (39.3-74.2) Lymph % (Auto) 15.7 % % (15.0-45.0) [place] % (Auto) 14.4 % H % (4.5-13.0) Eos % (Auto) 0.2 % L % (0.6-7.6) Baso % (Auto) 0.4 % % (0.3-1.7) Nucleat RBC Rel Count 0.0 % % (0.0-0.2) Absolute Neuts (auto) 3.58 10^3/uL 10^3/uL (1.70-6.50) Absolute Lymphs (auto) 0.82 10^3/uL L 10^3/uL (1.00-3.00) Absolute Monos (auto) 0.75 10^3/uL 10^3/uL (0.30-0.80) Absolute Eos (auto) 0.01 10^3/uL L 10^3/uL (0.03-0.40) Absolute Basos (auto) 0.02 10^3/uL 10^3/uL (0.02-0.10) Absolute Nucleated RBC 0.00 10^3/uL 10^3/uL (0-0.01) Immature Gran % 0.8 % % (0.0-1.1) Immature Gran # 0.04 10^3/uL 10^3/uL (0.00-0.10) PT 17.7 SEC H SEC (12.0-15.0) INR 1.44 H (0.83-1.16) APTT 33.0 SEC SEC (23.0-38.0) Sodium 112 mEq/L L* mEq/L (135-145) Potassium 5.8 mEq/L H mEq/L (3.5-5.2) Chloride 79 mEq/L L mEq/L (97-110) Carbon Dioxide 21 mEq/l L mEq/l (22-31) Anion Gap 12 mEq/L mEq/L (8-16) BUN 22 mg/dL mg/dL (7-23) Creatinine 1.1 mg/dL H mg/dL (0.6-1.0) Estimated GFR 48 Glucose 270 mg/dL H mg/dL (70-100) Calcium 8.8 mg/dL mg/dL (8.5-10.4) Total Bilirubin 1.5 mg/dL H mg/dL (0.1-1.4) Conjugated Bilirubin 1.3 mg/dL H mg/dL (0.0-0.5) Unconjugated Bilirubin 0.2 mg/dL mg/dL (0.0-1.1) AST 41 IU/L IU/L (14-46) ALT 35 IU/L IU/L (9-52) Alkaline Phosphatase 56 IU/L IU/L (38-126) Total Protein 6.8 g/dL g/dL (6.3-8.2) Albumin 3.6 g/dL g/dL (3.5-5.0) Medications Given: Acetaminophen (Tylenol) 650 mg PO Q4HRS PRN PRN Reason: Pain, Mild/Fever, Can Take PO Stop: 03/03/18 22:15 Last Admin: 09/05/17 06:07 Dose: 650 mg Discontinued Medications Sodium Chloride (Ns) 500 mls @ 1,000 mls/hr IV EDNOW ONE PRN Reason: Protocol Stop: 09/04/17 20:20 Last Admin: 09/04/17 19:57 Dose: 500 mls Departure - Departure Disposition: [facility] Inpatient Acute Clinical Impression: Hyponatremia Condition: Critical
[2017-09-04 20:00] LABS: PLATELET COUNT 173 10^3/uL (150-400)
[2017-09-04 20:14] LABS: INR 1.44 (0.83-1.16); PROTIME(PATIENT) 17.7 SEC (12.0-15.0)
[2017-09-04] MEDS ORDERED: ONDANSETRON 4 MG/2 ML VIAL IVP PRN (22:16)
[2017-09-04] MEDS ORDERED: ONDANSETRON DISINTEGRATING 4 MG TAB PO PRN (22:16)
--- NOTE | 2017-09-04 23:32 | PDGENHP ---
History and Physical - Chief Complaint Hyponatremia - History of Present Illness 81 yo F w/ systolic CHF, AF s/p PPM, and CAD s/p CABG directed to ED by PCP after finding hyponatremia on outpatient labs. Patient's daughter who is visiting [facility] explains that patient has felt poorly for about 2 days. Today, she has almost fallen a few times and complained of some dizziness. Family has been dosing Lasix 80-120 mg qAM and 40 mg qPM. She has also been a fluid restriction after July admission for volume overload and worsening CHF. I reviewed clinic notes from Dr. Mcginnis and Dr. Dorado who both feel patient has a very poor prognosis. The family has been resistant to communicate this to patient and have resisted hospice evaluations. In the ED sodium level was 112. She was given 500 mL NS bolus prior to labs resulting. History Information - Allergies/Home Medication List Allergies/Adverse Reactions: Sulfa (Sulfonamide Antibiotics) Allergy (Intermediate, Verified 09/04/17 19:37) Rash Home Medications: Clopidogrel Bisulfate [Clopidogrel] 75 mg PO HS 09/14/13 [Last Taken 09/03/17] Lansoprazole [Lansoprazole 30 mg tab] 30 mg PO DAILY 09/14/13 [Last Taken ] Latanoprost 0.005% [Xalatan 0.005% (*)] 1 drops EACHEYE HS 05/12/15 [Last Taken 09/03/17] Furosemide [Lasix 40 MG (*)] 80 - 120 mg PO DAILY 07/24/17 [Last Taken 09/04/17] Aspirin EC [Aspirin EC 81 mg (*)] 81 mg PO DAILY 09/04/17 [Last Taken 09/03/17] Carvedilol [Coreg (*)] 3.125 mg PO BIDMEAL 09/04/17 [Last Taken 09/04/17] Furosemide [Lasix 40 MG (*)] 40 mg PO DAILY@13 09/04/17 [Last Taken 09/04/17] Potassium Cl [Klor-Con 20 meq (*)] 20 meq PO DAILY 09/04/17 [Last Taken 09/04/17 ] Valsartan [Diovan (*)] 40 mg PO DAILY 09/04/17 [Last Taken 09/04/17] I have personally reviewed and updated: family history, medical history - Past Medical History atrial fibrillation, coronary artery disease, CHF - Surgical History Reports: coronary bypass surgery - Family History Additional family history: Deny family hx of cardiac disease - Social History Smoking Status: Never smoked Review of Systems Review of Systems: ROS: 10pt was reviewed & negative except for what was stated in HPI & below Physical Exam Physical Exam: Temp Pulse Resp BP Pulse Ox 36.7 C 83 15 112/64 98 09/04/17 21:51 09/04/17 21:51 09/04/17 21:51 09/04/17 21:51 09/04/17 21:51 Constitutional: no apparent distress, chronically ill appearing Eyes: PERRL, EOMI Ears, Nose, Mouth, Throat: moist mucous membranes, no oral mucosal ulcers Cardiovascular: regular rate and rhythym, systolic murmur, JVD (JVP 2 cm above clavicle @ 30 degrees), edema (2+ DEZ) Respiratory: no respiratory distress, clear to auscultation Gastrointestinal: normoactive bowel sounds, distension Skin: warm, normal color Neurologic: No weakness, No numbness Psychiatric: interacting appropriately, not anxious Lab Data & Imaging Review 09/04/17 19:53 09/04/17 19:53 WBC 5.22 10^3/uL (3.80-9.50) 09/04/17 19:53 RBC 3.47 10^6/uL (4.18-5.33) L 09/04/17 19:53 Hgb 9.6 g/dL (12.6-16.3) L 09/04/17 19:53 Hct 29.8 % (38.0-47.0) L 09/04/17 19:53 MCV 85.9 fL (81.5-99.8) 09/04/17 19:53 MCH 27.7 pg (27.9-34.1) L 09/04/17 19:53 MCHC 32.2 g/dL (32.4-36.7) L 09/04/17 19:53 RDW 15.7 % (11.5-15.2) H 09/04/17 19:53 Plt Count 173 10^3/uL (150-400) 09/04/17 19:53 MPV 9.9 fL (8.7-11.7) 09/04/17 19:53 Neut % (Auto) 68.5 % (39.3-74.2) 09/04/17 19:53 Lymph % (Auto) 15.7 % (15.0-45.0) 09/04/17 19:53 [place] % (Auto) 14.4 % (4.5-13.0) H 09/04/17 19:53 Eos % (Auto) 0.2 % (0.6-7.6) L 09/04/17 19:53 Baso % (Auto) 0.4 % (0.3-1.7) 09/04/17 19:53 Nucleat RBC Rel Count 0.0 % (0.0-0.2) 09/04/17 19:53 Absolute Neuts (auto) 3.58 10^3/uL (1.70-6.50) 09/04/17 19:53 Absolute Lymphs (auto) 0.82 10^3/uL (1.00-3.00) L 09/04/17 19:53 Absolute Monos (auto) 0.75 10^3/uL (0.30-0.80) 09/04/17 19:53 Absolute Eos (auto) 0.01 10^3/uL (0.03-0.40) L 09/04/17 19:53 Absolute Basos (auto) 0.02 10^3/uL (0.02-0.10) 09/04/17 19:53 Absolute Nucleated RBC 0.00 10^3/uL (0-0.01) 09/04/17 19:53 Immature Gran % 0.8 % (0.0-1.1) 09/04/17 19:53 Immature Gran # 0.04 10^3/uL (0.00-0.10) 09/04/17 19:53 PT 17.7 SEC (12.0-15.0) H 09/04/17 19:53 INR 1.44 (0.83-1.16) H 09/04/17 19:53 APTT 33.0 SEC (23.0-38.0) 09/04/17 19:53 Sodium 112 mEq/L (135-145) L* 09/04/17 19:53 Potassium 5.8 mEq/L (3.5-5.2) H 09/04/17 19:53 Chloride 79 mEq/L (97-110) L 09/04/17 19:53 Carbon Dioxide 21 mEq/l (22-31) L 09/04/17 19:53 Anion Gap 12 mEq/L (8-16) 09/04/17 19:53 BUN 22 mg/dL (7-23) 09/04/17 19:53 Creatinine 1.1 mg/dL (0.6-1.0) H 09/04/17 19:53 Estimated GFR 48 09/04/17 19:53 Glucose 270 mg/dL (70-100) H 09/04/17 19:53 Calcium 8.8 mg/dL (8.5-10.4) 09/04/17 19:53 Total Bilirubin 1.5 mg/dL (0.1-1.4) H 09/04/17 19:53 Conjugated Bilirubin 1.3 mg/dL (0.0-0.5) H 09/04/17 19:53 Unconjugated Bilirubin 0.2 mg/dL (0.0-1.1) 09/04/17 19:53 AST 41 IU/L (14-46) 09/04/17 19:53 ALT 35 IU/L (9-52) 09/04/17 19:53 Alkaline Phosphatase 56 IU/L (38-126) 09/04/17 19:53 Total Protein 6.8 g/dL (6.3-8.2) 09/04/17 19:53 Albumin 3.6 g/dL (3.5-5.0) 09/04/17 19:53 Imaging Review: Imaging Impressions Chest X-Ray 09/04/17 19:52 Impression: Suspect congestive heart failure, without neli pulmonary edema. Visualized and Interpreted EKG results: Yes EKG Interpretation: Positive for: other (V-paced) Assessment & Plan Assessment: 81 yo F w/ CAD s/p CABG, sCHF, and AF s/p PPM presents with hyponatremia. Plan: 1. Hyponatremia - Although patient appears relatively euvolemic on exam, I suspect she may be intravascularly volume depleted from high Lasix dosing at home and fluid restriction. Her volume balance has proven very challenging due to deteriorating cardiac function. Na 112 in ED, given 500 mL NS bolus prior to initial lab results. - Admit to ICU for close monitoring - Recheck BMP now along with [place] and Caitlin - Will discuss results with renal service and formulate plan 2. CHF - Last EF 27% with Class IV symptoms. Situation complicated by extensive CAD not amenable to intervention. - Will hold Lasix for now noting severe hyponatremia, continue BB and ARB - Cardiology consult - Would benefit from palliative care consult if family amenable 3. CAD - S/p CABG but with extensive, recurrent disease not amenable to intervention. - Continue DAPT, BB, ARB - Cardiology consult 4. AF - s/p PPM, V-paced on admission ECG. Diet - Regular Code - Full Ppx - SCDs Dispo - Admit under inpatient status noting severe hyponatremia and need for slow correction and frequent monitoring.
[2017-09-05] MEDS: ACETAMINOPHEN 325 MG TAB PO PRN ×2 (06:07→20:45)
[2017-09-05 06:10] LABS: PLATELET COUNT 173 10^3/uL (150-400)
--- NOTE | 2017-09-05 08:17 | PDMN ---
Medical Necessity Medical necessity: Pt meets INPT criteria per MD as of 09/04/17 (est. LOS >2 MN for eval/tx of severe hyponatremia with need for slow correction and ICU monitoring; CHF, CAD, AF s/p PPM per H&P).
[2017-09-05] MEDS: DIGOXIN 125 MCG TAB PO SCH (09:56)
[2017-09-05] MEDS: ASPIRIN EC 81 MG TAB PO SCH (09:56)
[2017-09-05] MEDS: PANTOPRAZOLE SODIUM 40 MG TAB PO SCH (09:56)
[2017-09-05] MEDS: CARVEDILOL 3.125 MG TAB PO SCH ×2 (09:59→18:48)
--- NOTE | 2017-09-05 10:26 | PDCONSULT ---
Research Laboratory Manager Note: Assessment/Plan: Hyponatremia: pt has chronic hyponatremia but came in less than usual with sodium of 118 yesterday afternoon, acutely down to 112 after vomiting, now up to 121. Her rate of rise is not concerning as her change in 12 hours is from 118->121. Her urine sodium and urine osm both are low. Her hyponatremia is likely a combination of diuresis and very poor solute intake, she sounds like she is hardly eating at home and quite literally following a tea and toast diet. - Would hold diuretics for now. - Will place her on 1500ml fluid restriction and encourage some more fluids than at home, just to prevent her from correcting too quickly. - Encourage her to eat. - Would continue to check sodium q4-6 hours for now, can adjust fluid/salt intake as needed. - Overall, with her poor solute intake and need for diuretics, she is at high risk for recurrence, agree with considering palliative care consult. 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 Hypervolemia: chronic in setting of CHF, improved overall from a month ago, currently satting fine on RA. - Will hold diuretics as above for now. - Will continue to monitor. Thank you for the interesting consult. Nephrology will continue to follow, please call if you have any additional questions or concerns. H & P Stated Complaint: "low sodium", not feeling well Time Seen by Provider: 09/04/17 19:43 HPI/ROS: HPI: Ms. Niño is an 81 yo F with h/o CHF (last month EF was 25-30%, CAD (h/o 4v CABG with known occlusion in 3/4 grafts), who presented to ER yesterday after being told to come in for hyponatremia. Pt runs chronically hyponatremic with sodium in high 120s-low 130s for years. She had labs drawn yesterday afternoon at 4pm that showed sodium down to 118, prompting recommendation to come to ER. After labs were drawn, pt had some vomiting. In ER, Na down to 112, was given 500ml NS and Na up to 116 in a few hours, this am up to 121. Pt's daughter is at bedside who is visiting from [place]. She notes that pt has had several hospitalizations lately. She was hospitalized here last month with worsening CHF and volume overload, has since been taking Lasix 80-120mg qam and 40mg qpm. She then was hospitalized elsewhere for a GI bleed and then again for concerns for pneumonia. Pt has not been doing as well at home lately. Daughter notes that 6 months ago pt had a regular appetite. Now, she eats very little, maybe some applesauce and a piece of toast and tea for breakfast, a boiled egg at most for lunch, and some more applesauce for dinner, hardly eats anything else. The only fluid she has is about 2 cups of tea a day, she is very worried to drink fluid with her swelling. She normally wears oxygen at night but currently is satting fine on room air. ROS: positive per HPI, rest of 10-point ROS negative Source: Family - Personal History Current Tetanus Diphtheria and Acellular Pertussis (TDAP): Yes Tetanus Vaccine Date: 2011 - Medical/Surgical History Hx Asthma: No Hx Chronic Respiratory Disease: No Hx Diabetes: Yes Hx Cardiac Disease: Yes Hx Renal Disease: No Hx Cirrhosis: No Hx Alcoholism: No Hx HIV/AIDS: No Hx Splenectomy or Spleen Trauma: No Other PMH: Congestive heart failure, pacemaker, cad, dm2, afib, - Family History Significant Family History: No pertinent family hx - Social History Smoking Status: Never smoked - Physical Exam Exam: General: alert and oriented, no acute distress Eyes: EOMI, PERRL OP: Clear, dry mucous membranes Neck: supple, no thyromegaly CV: RRR, +2/4 dorsalis pedis pulses, +2 edema BLE Resp: coarse breath sounds, nonlabored respirations on RA Abd: Soft, NT Neuro: CN II-XII Grossly intact, no asterixis Psych: cooperative, appropriate mood and affect Skin: C/D/I, no rash Constitutional: Initial Vital Signs Temperature (C) 36.3 C 09/04/17 19:37 Heart Rate 80 09/04/17 19:37 Respiratory Rate 18 09/04/17 19:37 Blood Pressure 115/68 09/04/17 19:37 O2 Sat (%) 96 09/04/17 19:37 O2 Delivery Mode Room Air Allergies/Adverse Reactions: Sulfa (Sulfonamide Antibiotics) Allergy (Intermediate, Verified 09/04/17 19:37) Rash Home Medications: Medication Instructions Recorded Clopidogrel Bisulfate [Clopidogrel] 75 mg PO HS 09/14/13 Lansoprazole [Lansoprazole 30 mg 30 mg PO DAILY 09/14/13 tab] Digoxin [Lanoxin 0.125 mg] 0.125 mg PO DAILY10 #30 tab 09/19/13 Latanoprost 0.005% [Xalatan 0.005% 1 drops EACHEYE HS 05/12/15 (*)] Furosemide [Lasix 40 MG (*)] 80 - 120 mg PO DAILY 07/24/17 Aspirin EC [Aspirin EC 81 mg (*)] 81 mg PO DAILY 09/04/17 Carvedilol [Coreg (*)] 3.125 mg PO BIDMEAL 09/04/17 Furosemide [Lasix 40 MG (*)] 40 mg PO DAILY@13 09/04/17 Potassium Cl [Klor-Con 20 meq (*)] 20 meq PO DAILY 09/04/17 Valsartan [Diovan (*)] 40 mg PO DAILY 09/04/17 Lab and Imaging 09/05/17 06:00 09/05/17 06:25 WBC 5.79 10^3/uL (3.80-9.50) 09/05/17 06:00 RBC 3.27 10^6/uL (4.18-5.33) L 09/05/17 06:00 Hgb 9.2 g/dL (12.6-16.3) L 09/05/17 06:00 Hct 27.7 % (38.0-47.0) L 09/05/17 06:00 MCV 84.7 fL (81.5-99.8) 09/05/17 06:00 MCH 28.1 pg (27.9-34.1) 09/05/17 06:00 MCHC 33.2 g/dL (32.4-36.7) 09/05/17 06:00 RDW 15.3 % (11.5-15.2) H 09/05/17 06:00 Plt Count 173 10^3/uL (150-400) 09/05/17 06:00 MPV 10.2 fL (8.7-11.7) 09/05/17 06:00 Neut % (Auto) 52.4 % (39.3-74.2) 09/05/17 06:00 Lymph % (Auto) 25.9 % (15.0-45.0) 09/05/17 06:00 H[place]go % (Auto) 19.5 % (4.5-13.0) H 09/05/17 06:00 Eos % (Auto) 1.6 % (0.6-7.6) 09/05/17 06:00 Baso % (Auto) 0.3 % (0.3-1.7) 09/05/17 06:00 Nucleat RBC Rel Count 0.0 % (0.0-0.2) 09/05/17 06:00 Absolute Neuts (auto) 3.03 10^3/uL (1.70-6.50) 09/05/17 06:00 Absolute Lymphs (auto) 1.50 10^3/uL (1.00-3.00) 09/05/17 06:00 Absolute Monos (auto) 1.13 10^3/uL (0.30-0.80) H 09/05/17 06:00 Absolute Eos (auto) 0.09 10^3/uL (0.03-0.40) 09/05/17 06:00 Absolute Basos (auto) 0.02 10^3/uL (0.02-0.10) 09/05/17 06:00 Absolute Nucleated RBC 0.00 10^3/uL (0-0.01) 09/05/17 06:00 Immature Gran % 0.3 % (0.0-1.1) 09/05/17 06:00 Immature Gran # 0.02 10^3/uL (0.00-0.10) 09/05/17 06:00 PT 17.7 SEC (12.0-15.0) H 09/04/17 19:53 INR 1.44 (0.83-1.16) H 09/04/17 19:53 APTT 33.0 SEC (23.0-38.0) 09/04/17 19:53 Sodium 121 mEq/L (135-145) L 09/05/17 06:25 Potassium 5.2 mEq/L (3.5-5.2) 09/05/17 06:25 Chloride 89 mEq/L (97-110) L 09/05/17 06:25 Carbon Dioxide 22 mEq/l (22-31) 09/05/17 06:25 Anion Gap 10 mEq/L (8-16) 09/05/17 06:25 BUN 21 mg/dL (7-23) 09/05/17 06:25 Creatinine 1.0 mg/dL (0.6-1.0) 09/05/17 06:25 Estimated GFR 53 09/05/17 06:25 Glucose 148 mg/dL (70-100) H 09/05/17 06:25 Serum Osmolality 264 mosmo/kg (280-297) L 09/04/17 23:00 Calcium 8.1 mg/dL (8.5-10.4) L 09/05/17 06:25 Total Bilirubin 1.5 mg/dL (0.1-1.4) H 09/04/17 19:53 Conjugated Bilirubin 1.3 mg/dL (0.0-0.5) H 09/04/17 19:53 Unconjugated Bilirubin 0.2 mg/dL (0.0-1.1) 09/04/17 19:53 AST 41 IU/L (14-46) 09/04/17 19:53 ALT 35 IU/L (9-52) 09/04/17 19:53 Alkaline Phosphatase 56 IU/L (38-126) 09/04/17 19:53 Total Protein 6.8 g/dL (6.3-8.2) 09/04/17 19:53 Albumin 3.6 g/dL (3.5-5.0) 09/04/17 19:53 Urine Osmolality 266 mosmo/kg (300-900) L 09/05/17 01:00 Ur Random Creatinine 45.1 mg/dL 09/05/17 01:00 Ur Random Sodium < 5.0 mEq/L (30-90) L 09/05/17 01:00
--- NOTE | 2017-09-05 11:41 | GCON ---
[f rep st] CONSULTATION MANAGER COUNCIL CONSULTATION REASON FOR ADMISSION: 1. Hyponatremia. 2. Congestive heart failure. HISTORY OF PRESENT ILLNESS: Ms. Niño is an 81-year-old Bengali female with an extensive past med ical history including congestive heart failure, coronary artery disease with a coronary bypass graft , atrial fibrillation. She was sent to the emergency room after being found with significant hyponat remia. Apparently, the 2 days prior she has been feeling poorly and had several falls. She is followe d by Dr. Ryan Gan as well as Dr. Dorado. PAST MEDICAL HISTORY: Significant for atrial fibrillation, coronary disease, congestive heart failur e. PAST SURGICAL HISTORY: She has had a coronary bypass graft. SOCIAL HISTORY: No history of tobacco use. No history of alcohol use. She is . Has good [facility] support. FAMILY HISTORY: Noncontributory. REVIEW OF SYSTEMS: A 10-point review of systems was performed and is negative except for what is sta leanne in the HPI. PHYSICAL EXAMINATION: VITAL SIGNS: Blood pressure 111/65, pulse 72, respirations 15, temperature 36 .7, oxygen saturation 98% on room air. GENERAL: In general, she is a well developed, elderly female who is resting comfortably on no supplemental oxygen. HEENT: Eyes are PERRLA, EOMI. Throat shows n o erythema or tonsillar hypertrophy. NECK: Supple. No cervical adenopathy. HEART: Regular rate a nd rhythm without murmurs, rubs, or gallops. LUNGS: Diminished breath sounds. A few bibasilar rhon chi. There is no wheeze. ABDOMEN: Somewhat mildly distended. Bowel sounds are present. EXTREMITIES: Showed 1+ lower extremity edema. LABORATORIES: White count 5.7, hemoglobin 9.2, hematocrit 27, platelet count is 173, sodium 121, pot assium 5.2, chloride 89, CO2 is 22, BUN 21, creatinine 1, glucose is 148. IMAGING: Chest x-ray reviewed by myself shows some congestive heart failure. IMPRESSION: 1. Congestive heart failure with very low ejection fraction. 2. Hyponatremia. 3. History of coronary artery disease. 4. Atrial fibrillation. 5. Incomplete database. RECOMMENDATIONS: 1. Close cardiovascular monitoring. 2. Consider rechecking an echocardiogram. 3. DVT and PE prophylaxis. 4. Stress ulcer prophylaxis. 5. Continue to diuresis. 6. Fluid restriction. 7. Thank you very much. /[id number]/MODL
--- NOTE | 2017-09-05 12:34 | SOAPPROG ---
[facility] Progress Note Assessment/Plan: Assessment: 81-year-old female with a cardiovascular history as detailed below. 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 Her recent cardiovascular workup would indicate that there really are no good options for therapy. It had been recommended on previous office visits that she be referred for palliative/hospice care. She is extremely weak and debilitated. She appears to be significantly volume overloaded by exam and based on her brain atretic peptide measurement. This is noted in the setting of a declining sodium. The etiology for hyponatremia is likely a combination of her underlying cardiomyopathy, volume overload and significantly reduced saw you had intake. She really has minimal p.o. of any nutrients. She is being followed by Nephrology. I appreciate their put as well as the input from Hospital Medicine. Today I had a lengthy conversation with both of her daughters who were present. I reviewed with them the nature of the patient's underlying cardiovascular disease. Specifically, we focused on the fact that she really is at the end stages of her myopathy/valvular heart disease. We really do not have any specific therapeutic options that would realistically impact the natural history of her underlying cardiovascular disease. The patient's prognosis is extremely poor likely measured in weeks to months. The family is understanding. Their goals are simply to keep the patient comfortable. They have agreed to a palliative/hospice care consult which has been placed along with a social work consult to evaluate resources that might be available to help care for this patient. Plan: 1. As stated above, we will place a hospice/palliative care consult and a consult with social Work. 2. Her diuretics have been held for the time being and she has been placed on a modest fluid restriction of 1500 cc. 3. Her sodium will be carefully followed on a Q 40 Q 6 basis. 4. Depending on her response to these therapies, we may need to consider further therapies to include a more stringent fluid restriction, the reinstitution of diuretic therapy and possibly the administration of low-dose dobutamine. These strategies may help improve her sodium. 5. We will follow along with you. 09/05/17 12:43 Subjective: The patient was seen and evaluated. Her medical record was reviewed. The case was discussed with Dr. Ryan Mcginnis who has seen and evaluated her in the congestive Heart failure Clinic. Her cardiovascular history is significant for known CAD. She underwent 4 vessel bypass surgery in 2006. Angiography done at an outside institution in July of this year demonstrated 3 of 4 occluded grafts. She has a chronic ischemic cardiomyopathy with an ejection fraction between 25 and 30% associated with valvular heart disease characterized by mixed moderate mitral stenosis and regurgitation and moderate to severe tricuspid regurgitation. Additionally she has permanent atrial fibrillation with sick sinus syndrome and a previous dual-chamber Biotronik pacemaker implantation. She has chronic [place] [employer] functional class 4 congestive heart failure. During her most recent visit to our outpatient clinic it was thought that she was at the end stages of her cardiomyopathy and recommendations were made for hospice/palliative care. She has been hospitalized multiple times this year. Most recently, she was hospitalized in [place] and ultimately transferred up to [facility]. At that time, she was hospitalized with decompensated congestive heart failure and a gastrointestinal bleed thought secondary to the use of Eliquis. She had been on Eliquis given her history of atrial fibrillation and most recently a DVT. I was front desk coordinator last night and was contacted by the lab with a critical value. Her sodium returned at 118. I contacted the family. We briefly discussed her clinical scenario including her overall prognosis. The decision was made by the family to bring her to the emergency department here. Apparently, she has been very weak. This is chronic. She rarely gets out of bed. Her appetite has been poor and she has had a great deal of difficulty eating anything here in the recent past. She has been on a fluid restriction which sounds like it may have been fairly harsh at times. Occasionally she gets out of bed and sits in a chair however she is really not able to walk with the exception of very short distances using her walker. There is a significant communication barrier as she speaks only Farsi. I was able to communicate with her through 1 of her daughters who speaks angulation. Overnight she has been hemodynamically stable. At 1 point, her sodium returned at 112. After discontinuation of her diuretics and giving her 500 cc of saline her sodium today was 121. Objective: Vital Signs Temp Pulse Resp BP Pulse Ox 36.4 C 73 20 94/48 L 97 09/05/17 12:00 09/05/17 12:00 09/05/17 12:00 09/05/17 12:00 09/05/17 12:00 Laboratory Results 09/05/17 06:00 09/04/17 09/05/17 09/06/17 05:59 05:59 05:59 Intake Total 500 Output Total 50 100 Balance 450 -100 PT 17.7 SEC (12.0-15.0) H 09/04/17 19:53 INR 1.44 (0.83-1.16) H 09/04/17 19:53 ICD10 Worksheet Patient Problems: Problems Problem Status Onset Hyponatremia Acute Acute hyponatremia Acute Afib - Atrial fibrillation Acute CAD (coronary artery disease) Acute CAD (coronary artery disease) of artery bypass graft Acute CHF (congestive heart failure) Acute Diabetes Acute Hyperlipidemia Acute Hypertension Acute chronic disease mgmt/transitional care Acute
[2017-09-05] MEDS: ENOXAPARIN 40 MG/0.4 ML SYR SC SCH (14:31)
[2017-09-05] MEDS ORDERED: NS 500 ML IV ONE (15:00)
--- NOTE | 2017-09-05 15:24 | ASMTCMCOM ---
CM Note CM Note Notes: Today, Dr Henry from [facility] had a conversation with patient and her daughters about her end stage ischemic cardiomyopathy. They agreed to a palliative care consult. Per Tara with Palliative Care, the family is amenable to an outpatient palliative referral but are not ready to pursue hospice. Patient herself does not see herself as end stage. Tara also shared that family would like to bring patient home (where she lives with her son) but they would like to discuss how they are going to supervise her there. Putting her in a regional intermodal truck driver care facility is an option but it would require an application for regional intermodal truck driver Medicaid, a process that can take up to 90 days. Zhanna from [facility] will come to meet with patient and her daughter Cate at 1600 today. Hopefully she will be able to offer the family more support in making these weighty decisions. Date Signed: 09/05/2017 03:24 PM Electronically Signed By:Lesly Mobley RN
--- NOTE | 2017-09-05 17:27 | HOSPPROG ---
Hospitalist Progress Note Assessment/Plan: Assessment: 81-year-old female presents with acute hyponatremia in the setting of ischemic cardiomyopathy, severe valvular heart disease, chronic systolic congestive heart failure Plan: 1. Hyponatremia. Acute, severe, levels low as 112 after patient experienced acute vomiting and was already hypovolemic secondary to diuresis and fluid restriction -discussed with Dr. Alex, she has recommended no IV fluids, holding diuretics, maintaining on fluid restriction, and monitoring sodium level -the patient and family are moving more in a palliative/hospice direction, but will monitor her sodium level every 6 hr overnight so that additional intervention can be provided if her hyponatremia is precipitously worsening or correcting too rapidly while the patient her family are making goals of care decisions 2. Ischemic cardiomyopathy. Chronic coronary artery disease as well as chronic systolic congestive heart failure, class 4 symptoms, ejection fraction between 25 and 30%, and recently receiving aggressive diuresis at home, chest x-ray with interstitial lung markings potentially consistent with acute CHF but she actually appears hypovolemic at this time I do not believe that she is experiencing an acute exacerbation but rather has chronic pulmonary venous congestion -her heart failure has been particularly difficult to manage given her severe valvular heart disease and her therapeutic options are very limited -continue aspirin and Plavix -I have discussed with Dr. Arcenio Henry, his recommendation is for palliative conversations and hospice care, and he has began this conversation with the patient and her family today -palliative Care her requested by family, will coordinate, and then pursue additional support from hospice so that the family is able to understand what type of care they can receive at home moving forward, as the patient clearly qualifies for hospice at this time -continue to hold diuretics 3. Severe valvular heart disease. Moderate to severe mitral regurgitation as well as mitral stenosis, moderate to severe tricuspid regurgitation -further complicates patient's congestive heart failure treatment, no surgical options for her valves at this time 4. Atrial fibrillation. Permanent, EKG demonstrating a V paced rhythm with intermittent atrial fibrillation -currently holding systemic anticoagulation given a recent GI bleed 5. Deep venous thrombosis. History of recent diagnosis approximately 20 days ago, suspect that she has ongoing clot burden but she has recently had a serious bleeding event and is currently not on systemic anticoagulation -will order outside records from [facility] to gauge the location and extent of her clot, as well as the treatment plan -hold on repeating any imaging as is unlikely to alter current management 6. Chronic anemia. Most likely secondary to chronic inflammatory disease, hemoglobin currently 9, no evidence of active bleeding Diet. Cardiac diet with fluid restriction Code. Full at present, will engage in advance directive and code status conversations once we have begun our palliative care discussions Prophylaxis. High risk patient given recent DVT, Lovenox 40 Disposition. Anticipated discharge uncertain this time, ongoing end of life care conversations as well as treatment for her severe hyponatremia. High-level medical complexity, high risk patient for worsening morbidity and/or mortality secondary to the issues outlined above. Subjective: Patient currently resting comfortably Objective: Vital Signs Temp Pulse Resp BP Pulse Ox 36.2 C 79 15 114/69 100 09/05/17 15:37 09/05/17 15:37 09/05/17 15:37 09/05/17 15:37 09/05/17 15:37 Laboratory Results 09/05/17 06:00 09/05/17 12:00 09/04/17 09/05/17 09/06/17 05:59 05:59 05:59 Intake Total 500 150 Output Total 50 275 Balance 450 -125 PT 17.7 SEC (12.0-15.0) H 09/04/17 19:53 INR 1.44 (0.83-1.16) H 09/04/17 19:53 - Physical Exam Constitutional: no apparent distress, not in pain, chronically ill appearing, other (Ashen appearing), No uncomfortable Cardiovascular: systolic murmur (4/6 at left sternal border as well as apex), irregularly irregular (With intermittent regular beat), JVD, No tachycardia, No edema Respiratory: reduced air movement (Poor inspiratory effort but poor air movement in the bilateral bases), No expiratory wheeze, No inspiratory crackles , No bronchial breath sounds Gastrointestinal: normoactive bowel sounds, distension (Mild to moderate), No tenderness, No guarding Psychiatric: not anxious, depressed (Report per daughter), flat affect, No agitated ICD10 Worksheet Patient Problems: Problems Problem Status Onset chronic disease mgmt/transitional care Acute Afib - Atrial fibrillation Acute CAD (coronary artery disease) Acute CAD (coronary artery disease) of artery bypass graft Acute Hypertension Acute Hyperlipidemia Acute Diabetes Acute Acute hyponatremia Acute Hyponatremia Acute CHF (congestive heart failure) Acute
[2017-09-05] MEDS: LATANOPROST 0.005% 2.5 ML OPHT DROPS EACHEYE SCH (20:15)
[2017-09-05] MEDS ORDERED: CLOPIDOGREL BISULFATE 75 MG TAB PO SCH (21:00)
[2017-09-06] MEDS: ACETAMINOPHEN 325 MG TAB PO PRN ×2 (06:07→21:07)
[2017-09-06] MEDS: ASPIRIN EC 81 MG TAB PO SCH (08:32)
[2017-09-06] MEDS: ENOXAPARIN 40 MG/0.4 ML SYR SC SCH (08:32)
[2017-09-06] MEDS ORDERED: SODIUM POLY SULF 15 GM/60 ML BOTTLE PO ONE ×2 (09:02→10:48)
--- NOTE | 2017-09-06 09:49 | SOAPPROG ---
RANDELL Progress Note Assessment/Plan: Assessment: 81 y/o woman with CAD and previous CABG with refractory endstage ischemic systolic CHF with LVEF 28%, moderate to severe MS/MR and TR with class IV NYHA. I do not think there is anything more we can do cardiac/chf somers to help this patient. She is not a candidate for redo CABG or valvular repair surgical or percutaneously. I think she is hypervolemic. I think her severe hyponatremia is from her low cardiac output. I am concerned she is still full code. I am glad her family has tentatively accepted palliative care but really think she needs to be in home hospice. REC: 1)I would start her on daily PO loop diuretic as I think she has symptomatic leg edema and is hyperkalemic and hypervolemic. 2)do not think short course of IV inotropes like IV dobutamine will change prognosis and might trigger VT storm 3)STRONGLY encourage patient to be changed to DNR and be enrolled in home hospice by time of transfer back to her home on Friday or Friday. 4)continue low dose Coreg and Digoxin for afib rate control. Stop Coreg if SBP < 85mmHg. time with patient and family present > 40 minutes. 09/06/17 09:40 Subjective: patient is weak and short of breath at rest. Denies chest pressure. Mentation is slow. She notices she has edema in her legs. Objective: Vital Signs Temp Pulse Resp BP Pulse Ox 36.5 C 84 13 98/60 L 93 09/06/17 04:00 09/06/17 08:00 09/06/17 08:00 09/06/17 08:00 09/06/17 08:00 Laboratory Results 09/05/17 06:00 09/06/17 06:10 09/05/17 09/06/17 09/07/17 05:59 05:59 05:59 Intake Total 500 400 Output Total 50 277 Balance 450 123 PT 17.7 SEC (12.0-15.0) H 09/04/17 19:53 INR 1.44 (0.83-1.16) H 09/04/17 19:53 Physical Exam - Physical Exam General Appearance: other (tired and withdrawn) EENT: normal ENT inspection Neck: non-tender Respiratory: rales (crackles bibasilar and poor respiratory effort.) Cardiac/Chest: regular rate, rhythm, gallop, JVD, diastolic murmur, systolic murmur Peripheral Pulses: 1+: carotid (R), carotid (L), femoral (R), femoral (L), dorsalis-pedis (R), dorsalis-pedis (L) Abdomen: non-tender, No guarding Skin: warm/dry Extremities: pedal edema Neuro/Psych: other ICD10 Worksheet Patient Problems: Problems Problem Status Onset Hyponatremia Acute Acute hyponatremia Acute Afib - Atrial fibrillation Acute CAD (coronary artery disease) Acute CAD (coronary artery disease) of artery bypass graft Acute CHF (congestive heart failure) Acute Diabetes Acute Hyperlipidemia Acute Hypertension Acute chronic disease mgmt/transitional care Acute
[2017-09-06] MEDS: PANTOPRAZOLE SODIUM 40 MG TAB PO SCH (10:56)
[2017-09-06] MEDS: DIGOXIN 125 MCG TAB PO SCH (10:56)
[2017-09-06] MEDS: CARVEDILOL 3.125 MG TAB PO SCH (10:57)
--- NOTE | 2017-09-06 11:36 | SOAPPROG ---
SOAP Progress Note Assessment/Plan: Assessment: 81 yo F with end stage CHF and CAD and multiple hospitalizations in the past month for CHF exacerbation, GI bleed, pneumonia. She has baseline chronic hyponatremia (baseline high 120's-low 130's) likely related to CHF and low solute intake who was admitted for hyponatremia (Na checked in clinic was 118, down to 112 on admission). Patient is nearing the end of her life. Patient's daughter who is at bedside reports that patient's wishes would be for minimal intervention at this point. Per my discussion with family this morning, leaning towards palliative care. Plan: # Hyponatremia- Na up to 120 this morning which is near patient's baseline *Discussed with one of patient's daughters who is at bedside who agrees that stopped lab draws would be appropriate at this point *If plan changes based on overall family discussions, would recommend minimizing free water intake (daughter says the patient is not wanting to drink ) and encourage intake of salty foods (patient is reportedly eating very minimal amounts). If patient starts taking some PO, could start Lasix 20mg PO and increase as needed if patient starts getting more volume overloaded. *Given patient's overall poor prognosis and lack of symptoms of the hyponatremia , would favor being less aggressive and stopping lab draws # Hypervolemia- does have elevated neck veins on exam and edema so likely is intravascularly volume up. However, patient is breathing comfortably on RA. *Would just let patient be at this point and plan to start a diuretic if patient develops shortness of breath. Patient is taking in very minimal PO at this point. # Hyperkalemia- mild hemolysis reported on lab from this morning, so true K level likely around 5.8 where it has been --don't think intervention is indicated at this time. However, if family wants aggressive management, could start lasix 20mg PO # Hematuria- given minimal PO intake, reabsorption of blood from bladder could be the source of the mild hyperkalemia. --Agree with holding anticoagulation If patient develops clots or is unable to void, would need to place senior and irrigate. Otherwise would just leave it alone --Given patient's overall prognosis, no urologic eval is warranted Thank you for this consult. We will continue to follow along. I will be risk management consultant tonight and rounding again tomorrow. Please feel free to contact me with any questions or concerns. My pager number is [phone] 09/06/17 11:22 09/06/17 11:37 Subjective: Patient comfortable right now. Per daughter, the patient reports that her heart feels weak. Patient denies shortness of breath. Patient has had some hematuria ( no clots and not dark red). Wanting less intervention at this point and focus on keeping the patient comfortable. Objective: Vital Signs Temp Pulse Resp BP Pulse Ox 36.5 C 84 13 98/60 L 93 09/06/17 04:00 09/06/17 08:00 09/06/17 08:00 09/06/17 08:00 09/06/17 08:00 Laboratory Results 09/05/17 06:00 09/06/17 06:10 09/05/17 09/06/17 09/07/17 05:59 05:59 05:59 Intake Total 500 400 Output Total 50 277 Balance 450 123 PT 17.7 SEC (12.0-15.0) H 09/04/17 19:53 INR 1.44 (0.83-1.16) H 09/04/17 19:53 Physical Exam - Physical Exam General Appearance: alert, no apparent distress, other (chronically ill- appearing) EENT: PERRL/EOMI, other (anicteric sclera) Respiratory: lungs clear, normal breath sounds Cardiac/Chest: edema (2+), JVD, systolic murmur Abdomen: normal bowel sounds, non-tender, distended Skin: other (stasis changes) Extremities: normal range of motion, pedal edema Neuro/Psych: alert (answers daughter's questions) ICD10 Worksheet Patient Problems: Problems Problem Status Onset Hyponatremia Acute Acute hyponatremia Acute Afib - Atrial fibrillation Acute CAD (coronary artery disease) Acute CAD (coronary artery disease) of artery bypass graft Acute CHF (congestive heart failure) Acute Diabetes Acute Hyperlipidemia Acute Hypertension Acute chronic disease mgmt/transitional care Acute
--- NOTE | 2017-09-06 12:21 | ASMTCMCOM ---
CM Note CM Note Notes: LATE ENTRY On 09/05, there was a palliaitive care consult with Tara Medina and patient's daughter Cate. Goals of care were discussed, as were cultural norms. Per Cate, she and her siblings have not been giving patient an accurate picture of her medical care because of a cultural belief that this could hasten . They have been particularly resistant to the use of lace winder services for this reason. Cate did agree to the concept of palliative care, so I therefore ordered an evaluation by [facility]. Zhanna from [facility] came around 1630 and Tara and I helped facilitate a meeting with Cate. Again, the issue of using an lace winder came up, but Zhanna was persistent. Cate agreed to the lace winder as long as nothing medical was discussed, only questions about quality of life. The result of this meeting was that patient agreed to palliative care services with [facility] and home care with [facility]. She appointed her three children as MDPOA. Per Cate, there is also a great deal of conflict between the siblings about what is best for their mother at this point. See Mindy's palliative care note for additional information. MDPOA form in chart; [facility] awaiting discharge orders. [facility] notified and can accept for home RN. Date Signed: 09/06/2017 12:20 PM Electronically Signed By:Lesly Mobley RN
--- NOTE | 2017-09-06 15:08 | ASMTCMCOM ---
CM Note CM Note Notes: This continues to be a challenging case d/t complex family dynamics. While every attempt has been made to advise the family to support patient with hospice care, her children have decided to withhold certain information from patient so that she not know the terminal nature of her illness. Consequently, she has expressed to them that she wishes to continue to "fight," although she has also indicated that, if she were to be sick enough to , she'd like to go peacefully in her sleep. Unfortunately, the family has resisted using a third libertarian bolt threader service to communicate with their mother. One daughter, Cate, is exasperated with the situation and believes that the right thing to do is tell their mother the truth and let her decide what she wants. The other daughter, Palak (who is an MD in [place]) wants to honor her mother's wish to continue to be treated, despite the fact that she knows her mother doesn't know her prognosis. A son, Lovely, is also involved, although his main concern seems to revolve around the fact that patient lives with him and he doesn't want caregivers coming into the home. It seems that there was a flicker of interest in son around [facility] care center as a good place for patient to reside, but when I explain that this means she will no longer have the option to be hospitalized, the family is not interested. I still provided literature on [facility] per Cate request. After a long conversation with Cate and Tu in which I could sense patient becoming concerned, in a gesture of frustration, Cate says that family will just take her home and Palak (from [place]) will be the caregiver. [facility] will follow for palliative care, and [facility] for home care. Dr Ram will not recommend serial blood draws in his discharge instructions. If we can be of any more help during this process, we will. Date Signed: 09/06/2017 03:07 PM Electronically Signed By:Lesly Mobley RN
--- NOTE | 2017-09-06 15:19 | HOSPPROG ---
Hospitalist Progress Note Assessment/Plan: Assessment: 81-year-old female presents with acute hyponatremia in the setting of ischemic cardiomyopathy, severe valvular heart disease, acute on chronic systolic congestive heart failure Plan: 1. Hyponatremia. Acute, severe, levels low as 112 after patient experienced acute vomiting and has been experiencing poor cardiac output in refractory sCHF -held diuretics, fluid restriction, sNa improved to 120 -stop monitoring freq sNa 2. Ischemic cardiomyopathy and acute on chronic systolic CHF exacerbation. Chronic coronary artery disease as well as acute on chronic systolic congestive heart failure, class 4 symptoms, ejection fraction between 25 and 30%, and recently receiving aggressive diuresis at home, chest x-ray with interstitial lung markings (personally interpreted), JVD, and patient likely refractory to PO diuretics -d/w Dr. Mcginnis, our impression is that she has poor renal perfusion in setting of poor CO, and that the only method to effectively tx would be w/ aggressive measures to increase both, with dobutamine gtt/lasix gtt, but, these methods are outside her stated goals of care -PO diuretics palliatively if getting SOB 3. Severe valvular heart disease. Moderate to severe mitral regurgitation as well as mitral stenosis, moderate to severe tricuspid regurgitation -further complicates patient's congestive heart failure treatment, no surgical options for her valves at this time 4. Atrial fibrillation. Permanent, EKG demonstrating a V paced rhythm with intermittent atrial fibrillation -currently holding systemic anticoagulation given a recent GI bleed 5. Deep venous thrombosis. History of recent diagnosis approximately 20 days ago, suspect that she has ongoing clot burden but she has recently had a serious bleeding event and is currently not on systemic anticoagulation -will order outside records from [facility] to gauge the location and extent of her clot, as well as the treatment plan -hold on repeating any imaging as is unlikely to alter current management 6. Chronic anemia. Most likely secondary to chronic inflammatory disease, hemoglobin currently 9, no evidence of active bleeding 7. Hyperkalemia. Acute, d/w Dr. Vargas, appreciate renal consultation, we have rechecked K and it is 5.5, will hold on kayexelate at this time 8. Hematuria. Acute, new problem, further w/u indicated. Unclear etiology, possibly hemorrhagic cystitis, patient too encephalopathic to confirm or denies symptoms, began this AM -received one dose lovenox, possibly 2/2 dvt ppx rx, hold -hold ASA/plavix -get UA and tx for possible UTI if positive 9. Acute encephalopathy. Evidenced by global brain dysfunction characterized as confusion, inappropriate verbal responses, both of which are acute changes from baseline per daughter, likely 2/2 metabolic effects of hyponatremia -patient AAOx2 but not providing coherent verbal responses to direct questions from her daughter in [facility] -I do not think the patient currently has the capacity to make complex medical decisions, so her daughter (MD CALLE) will make the best decisions she can based on her knowledge of how the patient would want to proceed Diet. Cardiac diet with fluid restriction Code. Full at present, will engage in advance directive and code status conversations once we have begun our palliative care discussions Prophylaxis. High risk patient given recent DVT, hold pharm given bleed Disposition. Anticipated discharge uncertain this time, ongoing end of life care conversations as well as treatment for her severe hyponatremia. Subjective: several episodes of hematuria this AM, no pain, lethargic Objective: Vital Signs Temp Pulse Resp BP Pulse Ox 36.6 C 73 14 96/60 L 95 09/06/17 13:02 09/06/17 13:02 09/06/17 13:02 09/06/17 13:02 09/06/17 13:02 Laboratory Results 09/05/17 06:00 09/06/17 10:01 09/05/17 09/06/17 09/07/17 05:59 05:59 05:59 Intake Total 500 400 Output Total 50 277 Balance 450 123 PT 17.7 SEC (12.0-15.0) H 09/04/17 19:53 INR 1.44 (0.83-1.16) H 09/04/17 19:53 - Physical Exam Constitutional: no apparent distress, not in pain, chronically ill appearing, cachectic, No uncomfortable Cardiovascular: systolic murmur (IV/ at LSB and apex), irregularly irregular, JVD, edema (trace bilat ), No tachycardia Respiratory: reduced air movement (poor insp effort), inspiratory crackles, No expiratory wheeze, No bronchial breath sounds, No respiratory distress Gastrointestinal: normoactive bowel sounds, soft, non-tender abdomen, no palpable masses, distension (mild-mod) Neurologic: other (AAOX2) Psychiatric: not anxious, flat affect, other (non-linear verbal responses, confused), No agitated ICD10 Worksheet Patient Problems: Problems Problem Status Onset Hyponatremia Acute Acute hyponatremia Acute Afib - Atrial fibrillation Acute CAD (coronary artery disease) Acute CAD (coronary artery disease) of artery bypass graft Acute CHF (congestive heart failure) Acute Diabetes Acute Hyperlipidemia Acute Hypertension Acute chronic disease mgmt/transitional care Acute
[2017-09-06] MEDS ORDERED: NS 500 ML IV ONE (16:07)
[2017-09-06] MEDS: LATANOPROST 0.005% 2.5 ML OPHT DROPS EACHEYE SCH (21:07)
[2017-09-07] MEDS ORDERED: DIPHENHYDRAMINE CREAM TP PRN (04:40)
[2017-09-07 08:18] VITALS: BP 83/53
[2017-09-07] MEDS: PANTOPRAZOLE SODIUM 40 MG TAB PO SCH (08:42)
[2017-09-07] MEDS: ACETAMINOPHEN 325 MG TAB PO PRN ×2 (08:45→15:50)
--- NOTE | 2017-09-07 09:25 | SOAPPROG ---
RANDELL Progress Note Assessment/Plan: Assessment: 81 y/o woman with CAD and previous CABG with refractory endstage ischemic systolic CHF with LVEF 28%, moderate to severe MS/MR and TR with class IV NYHA. I do not think there is anything more we can do cardiac/chf somers to help this patient. She is not a candidate for redo CABG or valvular repair surgical or percutaneously. I think she is hypervolemic. I think her severe hyponatremia is from her low cardiac output. No really clinical change in last 24hrs. She was made DNR which I think is the right decision. I am concerned there is still a lot of division in family about type of care for their mom (hospice vs continued aggressive). I am afraid if she goes home tomorrow they will bring her back the next day as she gets weaker. There is no real sustainable improving care when can offer Ms. Niño. REC: 1)stop Coreg as SBP too low 2)ASA/ plavix and Digoxin as only cardiac meds. 3)explore transfer to in-pt hospice care this admission. Will sign off. 09/07/17 09:21 Subjective: short of breath at rest. Not in pain. Still with edematous legs. Has not gotten out of bed. Objective: Vital Signs Temp Pulse Resp BP Pulse Ox 36.4 C 81 19 83/53 L 95 09/07/17 08:00 09/07/17 08:00 09/07/17 08:00 09/07/17 08:00 09/07/17 08:00 Laboratory Results 09/05/17 06:00 09/06/17 10:01 09/06/17 09/07/17 09/08/17 05:59 05:59 05:59 Intake Total 400 100 Output Total 277 Balance 123 100 PT 17.7 SEC (12.0-15.0) H 09/04/17 19:53 INR 1.44 (0.83-1.16) H 09/04/17 19:53 Physical Exam - Physical Exam General Appearance: other (decreased mental status but awakeable.) EENT: normal ENT inspection Neck: non-tender Respiratory: rales, No respiratory distress Cardiac/Chest: regular rate, rhythm, gallop, JVD, systolic murmur Peripheral Pulses: 1+: carotid (R), carotid (L), femoral (R), femoral (L), dorsalis-pedis (R), dorsalis-pedis (L) Abdomen: non-tender, No guarding, No rebound Skin: warm/dry Extremities: pedal edema Neuro/Psych: depressed affect ICD10 Worksheet Patient Problems: Problems Problem Status Onset Hyponatremia Acute Acute hyponatremia Acute Afib - Atrial fibrillation Acute CAD (coronary artery disease) Acute CAD (coronary artery disease) of artery bypass graft Acute CHF (congestive heart failure) Acute Diabetes Acute Hyperlipidemia Acute Hypertension Acute chronic disease mgmt/transitional care Acute
[2017-09-07] MEDS: DIGOXIN 125 MCG TAB PO SCH (10:46)
--- NOTE | 2017-09-07 11:13 | WOCRNPDOC ---
WOCRN Advanced Assessment Note - Skin Integrity Problem, Advanced Assess Coccyx Pressure Injury Dressing Type: Open to Air Exudate Amount: None Exudate Characteristic(s): None Integumentary Issue Intervention: Barrier Cream Applied (Calazime) Emely Wound Tissue: Blanching, Intact Emely Wound Swelling: None Wound Bed Color: Red Wound Bed Constitution: Red/Midway - Non Granular Tissue Wound Edges: Epithelizing Site Measurement - Head-to-Toe Length X Width X Depth (cm): 0.3cmx0.2cmx0.1cm Pressure Injury Stage: Stage 2 Pressure Injury Present on Admit: Yes (hospitalist notified) Skin Integrity Problem Comment: Discrete, small area of partial-thickness tissue loss noted over coccyx, appearance consistent w/ stage 2 pressure injury. No swelling or erythema periwound. As this wound is close to the anus, recommed off-loading side to side and Calazime instead of a dressing. Demonstrated to daughter use of TAPS to reposition patient on her side, and encouraged her to take the system home with her when her mother goes home. Accu- max pump placed by nursing, and this is appropriate to continue.
[2017-09-07] MEDS: ASPIRIN EC 81 MG TAB PO SCH (11:46)
--- NOTE | 2017-09-07 13:33 | PDIAF ---
- Diagnosis Diagnosis: Terminal Systolic CHF, Afib, CAD, Hyponatremia Code Status: Do Not Resuscitate - Medication Management Discharge Medications: Medications to Continue on Transfer Clopidogrel Bisulfate [Clopidogrel] 75 mg PO HS 09/14/13 [Last Taken 09/03/17] Lansoprazole [Lansoprazole 30 mg tab] 30 mg PO DAILY 09/14/13 [Last Taken ] Digoxin [Lanoxin 0.125 mg] 0.125 mg PO DAILY10 #30 tab 09/19/13 [Last Taken 05/12] Latanoprost 0.005% [Xalatan 0.005% (*)] 1 drops EACHEYE HS 05/12/15 [Last Taken 09/03/17] Furosemide [Lasix 40 MG (*)] 80 - 120 mg PO DAILY 07/24/17 [Last Taken 09/04/17] Aspirin EC [Aspirin EC 81 mg (*)] 81 mg PO DAILY 09/04/17 [Last Taken 09/03/17] Furosemide [Lasix 40 MG (*)] 40 mg PO DAILY@13 09/04/17 [Last Taken 09/04/17] Acetaminophen [Tylenol 325mg (*)] 650 mg PO Q4HRS PRN tab 09/07/17 [Last Taken Unknown] levOFLOXACIN [Levofloxacin] 500 mg PO DAILY #3 tablet 09/07/17 [Last Taken Unknown] oxyCODONE IR [Oxycodone Ir (*)] 5 - 10 mg PO Q4 PRN #30 tab 09/07/17 [Last Taken Unknown] Decaler Antibiotics: Levofloxacin 500mg PO daily x 3 days Decaler Antibiotic Stop Date: 09/09/17 Discharge Medications: Refer to the Discharge Home Medication list for PRN reason. PICC Care - Routine: N/A - Orders Services needed: Home Care, Registered Nurse, Certified Road Sign Installer Home Care Face to Face: I certify that this patient was under my care and that I had the required [id number] encounter meeting the encounter requirements on the discharge day. My findings support the fact that the patient is homebound as defined in Home Care Face to Face Continued: CMS Chapter 7 Medicare Benefits Manual 30.1.1 , The condition of the patient is such that there exists a normal inability to leave home and consequently, leaving home would require a considerable and taxing effort. Isolation Type: None Oxygen: NA Diet Recommendation: no restrictions on diet Additional Instructions: Please apply Calazime or other zinc-based cream to inner buttocks (tailbone) twice daily. Use blue Turn and Position System from hospital to turn [place] side to side, keeping pressure off of her bottom. Please treat chest pain symptomatically with tylenol and PRN oxycodone, and involve palliative care as needed. - Follow Up Care Current Providers and Referrals: Laurie Dorado MD [Primary Care Provider] - As per Instructions
--- NOTE | 2017-09-07 14:22 | PDIAF ---
- Diagnosis Diagnosis: Terminal Systolic CHF, Afib, CAD, Hyponatremia Code Status: Do Not Resuscitate - Medication Management Discharge Medications: Medications to Continue on Transfer Clopidogrel Bisulfate [Clopidogrel] 75 mg PO HS 09/14/13 [Last Taken 09/03/17] Lansoprazole [Lansoprazole 30 mg tab] 30 mg PO DAILY 09/14/13 [Last Taken ] Digoxin [Lanoxin 0.125 mg] 0.125 mg PO DAILY10 #30 tab 09/19/13 [Last Taken 05/12] Latanoprost 0.005% [Xalatan 0.005% (*)] 1 drops EACHEYE HS 05/12/15 [Last Taken 09/03/17] Furosemide [Lasix 40 MG (*)] 80 - 120 mg PO DAILY 07/24/17 [Last Taken 09/04/17] Aspirin EC [Aspirin EC 81 mg (*)] 81 mg PO DAILY 09/04/17 [Last Taken 09/03/17] Furosemide [Lasix 40 MG (*)] 40 mg PO DAILY@13 09/04/17 [Last Taken 09/04/17] Acetaminophen [Tylenol 325mg (*)] 650 mg PO Q4HRS PRN tab 09/07/17 [Last Taken Unknown] levOFLOXACIN [Levofloxacin] 500 mg PO DAILY #3 tablet 09/07/17 [Last Taken Unknown] oxyCODONE IR [Oxycodone Ir (*)] 5 - 10 mg PO Q4 PRN #30 tab 09/07/17 [Last Taken Unknown] Registered Dietitian Antibiotics: Levofloxacin 500mg PO daily x 3 days Registered Dietitian Antibiotic Stop Date: 09/09/17 Discharge Medications: Refer to the Discharge Home Medication list for PRN reason. PICC Care - Routine: N/A - Orders Services needed: Home Care, Registered Nurse, Certified Shot Peen Operator Home Care Face to Face: I certify that this patient was under my care and that I had the required [id number] encounter meeting the encounter requirements on the discharge day. My findings support the fact that the patient is homebound as defined in Home Care Face to Face Continued: CMS Chapter 7 Medicare Benefits Manual 30.1.1 , The condition of the patient is such that there exists a normal inability to leave home and consequently, leaving home would require a considerable and taxing effort. Isolation Type: None Oxygen: NA Diet Recommendation: no restrictions on diet Additional Instructions: Please apply Calazime or other zinc-based cream to inner buttocks (tailbone) twice daily. Use blue Turn and Position System from hospital to turn [place] side to side, keeping pressure off of her bottom. Please treat chest pain symptomatically with tylenol and PRN oxycodone, and involve palliative care as needed. - Labs/Radiology Other Lab Name, Date and Time: Fasting B1 level (12hrs fasting prior) Call or Fax Lab and Imaging Results to: patient and patient's daughter - Follow Up Care Current Providers and Referrals: Laurie Dorado MD [Primary Care Provider] - As per Instructions
--- NOTE | 2017-09-07 15:07 | ASDISCHSUM ---
Discharge Information Plan Status:Home with Home Health Medically Cleared to Leave:09/07/2017 Discharge Date:09/07/2017 CM D/C Disposition:Home Health Service [facility] D/C Disposition:[id number] Projected Discharge Date:09/07/2017 05:00 PM Transportation at D/C:Family Discharge Delay Reason: Follow-Up Date:09/07/2017 05:00 PM Discharge Slot: Final Diagnosis:Terminal CHF, Afib, CAD, Hyponatremia Placement Information Referral Type:Palliative Care Referral ID:[id number] Provider Name:[facility] Address 1:[address] [place] [address] Phone Number: Address 2: Fax Number: City:[place] Selection Factors: State:[place] Referral Type:*Home Health Care Services Referral ID:[id number] Provider Name:[facility]) Address 1:[address] [place] [address] Address 2: [facility] Selection Factors: State:[place] Patient Contact Information Contact Name:HERMELINDA Relationship:Daughter Address:[address] City:[place] Alternate Phone: [facility]/Zip Code:[place] [address] Email: Financial Information Financial Class:Medicare Primary Plan Desc:MEDICARE IP PART B ONLY Primary Plan Number:[id number] Secondary Plan Desc:[place] Secondary Plan Number:[id number] Assessment Information LACE LACE Length of stay for Answers: 3 days current admission Acuity / Level of Answers: Yes Care: Did the patient have an inpatient admission? Comorbidities - select Answers: Congestive heart failure all that apply Coronary Artery Disease Diabetes (uncontrolled or controlled) Other Notes: Pacemaker # of Emergency department Answers: 1-2 visits in the last 6 months Score: 13 Date Signed: 09/07/2017 02:11 PM Electronically Signed By:Freida Kumar LCSW [facility] Progress Note CM Note CM Note Notes: Today, Dr Henry from [facility] had a conversation with patient and her daughters about her end stage ischemic cardiomyopathy. They agreed to a palliative care consult. Per Tara with Palliative Care, the family is amenable to an outpatient palliative referral but are not ready to pursue hospice. Patient herself does not see herself as end stage. Tara also shared that family would like to bring patient home (where she lives with her son) but they would like to discuss how they are going to supervise her there. Putting her in a terminal operator care facility is an option but it would require an application for intermediate Medicaid, a process that can take up to 90 days. Zhanna from [facility] will come to meet with patient and her daughter Cate at 1600 today. Hopefully she will be able to offer the family more support in making these weighty decisions. Date Signed: 09/05/2017 03:24 PM Electronically Signed By:Lesly Mobley RN [facility] Progress Note CM Note CM Note Notes: LATE ENTRY On 09/05, there was a palliaitive care consult with Tara Adam and patient's daughter Cate. Goals of care were discussed, as were cultural norms. Per Cate, she and her siblings have not been giving patient an accurate picture of her medical care because of a cultural belief that this could hasten . They have been particularly resistant to the use of compressed gases tester services for this reason. Cate did agree to the concept of palliative care, so I therefore ordered an evaluation by [facility]. Zhanna from [facility] came around 1630 and Tara and I helped facilitate a meeting with Cate. Again, the issue of using an compressed gases tester came up, but Zhanna was persistent. Cate agreed to the compressed gases tester as long as nothing medical was discussed, only questions about quality of life. The result of this meeting was that patient agreed to palliative care services with Ana and home care with [facility]. She appointed her three children as MDPOA. Per Cate, there is also a great deal of conflict between the siblings about what is best for their mother at this point. See Mindy's palliative care note for additional information. MDPOA form in chart; [facility] awaiting discharge orders. [facility] notified and can accept for home RN. Date Signed: 09/06/2017 12:20 PM Electronically Signed By:Lesly Mobley RN [facility] CM Progress Note CM Note CM Note Notes: This continues to be a challenging case d/t complex family dynamics. While every attempt has been made to advise the family to support patient with hospice care, her children have decided to withhold certain information from patient so that she not know the terminal nature of her illness. Consequently, she has expressed to them that she wishes to continue to "fight," although she has also indicated that, if she were to be sick enough to , she'd like to go peacefully in her sleep. Unfortunately, the family has resisted using a third democrat compressed gases tester service to communicate with their mother. One daughter, Cate, is exasperated with the situation and believes that the right thing to do is tell their mother the truth and let her decide what she wants. The other daughter, Palak (who is an MD in [place]) wants to honor her mother's wish to continue to be treated, despite the fact that she knows her mother doesn't know her prognosis. A son, Lovely, is also involved, although his main concern seems to revolve around the fact that patient lives with him and he doesn't want caregivers coming into the home. It seems that there was a flicker of interest in son around [facility] as a good place for patient to reside, but when I explain that this means she will no longer have the option to be hospitalized, the family is not interested. I still provided literature on [facility] per Cate request. After a long conversation with Cate and Tu in which I could sense patient becoming concerned, in a gesture of frustration, Cate says that family will just take her home and Palak (from [place]) will be the caregiver. [facility] will follow for palliative care, and [facility] for home care. Dr Ram will not recommend serial blood draws in his discharge instructions. If we can be of any more help during this process, we will. Date Signed: 09/06/2017 03:07 PM Electronically Signed By:Lesly Mobley RN Case Management Discharge Plan Note Case Management Discharge Discharge Order Complete? Answers: Yes Patient to Obtain Answers: via Family Medications Transportation Arranged Answers: Family/Friends Transport will Pick (Date 09/07/2017 05:00 PM & Time) Faxed Final Orders Answers: Yes Notes: [facility] Family Notified Answers: Yes Notes: Family to transport Discharge Comments Notes: Patient to discharge home with family and [facility] to follow. Referrals to both. Date Signed: 09/07/2017 02:10 PM Electronically Signed By:Freida Kumar LCSW Intervention Information
--- NOTE | 2017-09-07 15:12 | PDDCSUM ---
Discharge Summary Discharge Summary: DISCHARGE SUMMARY FOLLOW-UP ITEMS: Continue to encourage the involvement of hospice care services at home Continue home management of chest pain, would not recommend hospitalizing as her etiologies of chest pain are terminal and her stated goals of care are comfort DATE OF ADMISSION: 09/04/2017 DATE OF DISCHARGE: 09/07/2017 DISCHARGE DIAGNOSES: 1. Acute on chronic systolic congestive heart failure exacerbation 2. Ischemic cardiomyopathy 3. Acute on chronic hyponatremia 4. Severe valvular heart disease 5. Permanent atrial fibrillation 6. Deep venous thrombosis present on admission 7. Chronic anemia 8. Acute hyperkalemia 9. Possible acute hemorrhagic cystitis, present on admission 10. Acute encephalopathy 11. Chronic kidney disease stage 3 CONSULTATIONS: Nephrology, Cardiology PROCEDURES / IMAGING: Chest x-ray with increased interstitial prominence CHIEF COMPLAINT: Acute fatigue, confusion, poor appetite SUBJECTIVE: Patient continues to be fatigued, she is intermittently active, other times with drawn PHYSICAL EXAM ON DISCHARGE: Systolic blood pressure 80-100, heart rate 60-80, afebrile overnight, satting on room air, opens eyes to voice, follows commands, verbally responsive LABS ON DISCHARGE: Sodium level 121, potassium 5.4, creatinine 1.1, B12 and folate pending at time of discharge, hemoglobin 9.2 HOSPITAL COURSE BY PROBLEM: The patient presented with acute fatigue, poor appetite, confusion, most likely secondary to terminal and acutely worsening systolic congestive heart failure exacerbation, evidenced by interstitial prominence on chest x-ray, resulting in reduced cardiac output and subsequent acute worsening of her chronic hyponatremia, with baseline serum sodium levels in the high 120s. Her serum sodium level on presentation was 112. She received fluid restriction, temporary discontinuation of her diuretics, and her serum sodium level up trended, 121 time discharge. She was seen in consultation by Nephrology and Cardiology, and we all agreed that the patient's worsening hyponatremia is most likely secondary to worsening cardiac output secondary to worsening ischemic heart disease in the setting of severe valvular abnormalities including moderate to severe mitral regurgitation and stenosis, moderate to severe tricuspid regurgitation, without any surgical options available. Consequently, her numerous cardiac issues are terminal and her current ejection fraction is between 25 and 30%, rendering a low resultant blood pressure, and intolerance of her current cardiac medications. Additionally, the patient stated goals of care to her medical power of civil attorney, her daughter, have indicated that the patient would like to comfortably, and she would not want additional aggressive treatment, which would consist of a dobutamine drip and Lasix drip, which would only temporize the patient's situation and not provide her with curative benefit. Consequently, these interventions were not performed , and we worked with the patient's other family members, notably her other daughter and her son, to help them understand the severity and terminal nature of the patient's condition and that the patient would most likely benefit from hospice services, particularly in the context of her stated goals of care. We offered consideration of the inpatient hospice care center, but they preferred to take the patient home. We offered home hospice, but they are not comfortable having hospice caretakers coming to their home, and they do not believe that the patient would want to know her terminal diagnosis, so they have been withholding that information from her with the belief that it is in her best interest. Consequently, we have arranged a palliative services to assist them with the home care services that currently already have involved. The patient's family members asked whether ongoing lab monitoring would be of any benefit, and I informed them that it would not, as we anticipate that her lab values will continue to worsen as the patient's situation nears end of life. As a supportive measure, given the patient's hematuria, we initiated empiric levofloxacin for 3 subsequent days, given the possibility of hemorrhagic cystitis and our inability to collect a urinalysis and urine culture. We also empirically provided the patient with a script of as needed oxycodone for ongoing chest discomfort, which may be secondary to either her congestive heart failure or her ischemic cardiac disease. Neither of these conditions have any potential for therapeutic cure, so palliative treatment with pain medications is the appropriate treatment given her expressed goals of care. She also use as needed Lasix at home if shortness of breath or symptomatic pulmonary congestion become an issue. It should be noted that there are numerous family dynamics at play which are heavily influencing the patient's current care. The patient has 1 daughter who is her medical power of civil attorney who has received the patient's care wishes directly from the patient herself, and she is the 1 who has been advocating for comfort care. The patient has another daughter who is a medical provider in [place], has been visiting for the past 8 weeks, and wants to perform every measure possible with the belief that continued lab draws, continue aggressive thiamine treatment, continue medical investigation will provide her mother with the encouragement that she needs in order to "get well". The patient has a son whose home is the patient's primary residence, and he is 1 of her primary physical caretakers. He is fearful of having his mother in his own home, as this situation has not been fully explored with him and he has not received the reassurance that he needs to know that this is a situation where he can receive ongoing support from home hospice. This fear has made him reticent to involve hospice caretakers in his home and may be counterproductive to the patient receiving the comfort care she desires at her end of life. That being said, we have attempted to work with all of these dynamics during this hospitalization with numerous providers attempting to accommodate the patient and her family members, including myself, Cardiology, Nephrology, case management, nursing care. DISCHARGE MEDICATIONS: Please see official discharge medication reconciliation sheet in chart , oxycodone as needed, Tylenol as needed, levofloxacin 500 mg daily x3 days, as needed Lasix. DISCHARGE INSTRUCTIONS: Please continue to utilize the support of palliative care and home care services and consider hospice. TIME SPENT: Greater than 30 minutes were spent on direct patient care, as well as discharge planning and preparation.
== END 2017-09-07 17:40 | disposition home health service (06) | DRG 640 ==
LOC: OBSVTOIN 21:03 → F2N 21:36 → F2W 09-05 15:15
PROVIDERS: ADMIT Internal Medicine; ATTEND Internal Medicine
DX: E87.1 Hypo-osmolality and hyponatremia (principal); I50.23 Acute on chronic systolic (congestive) heart failure; I25.5 Ischemic cardiomyopathy; Z95.1 Presence of aortocoronary bypass graft; I08.1 Rheumatic disorders of both mitral and tricuspid valves; E87.5 Hyperkalemia; G93.41 Metabolic encephalopathy; N30.91 Cystitis, unspecified with hematuria; N18.3 Chronic kidney disease, stage 3 (moderate); I48.2 Chronic atrial fibrillation; Z95.0 Presence of cardiac pacemaker; L89.152 Pressure ulcer of sacral region, stage 2; D64.9 Anemia, unspecified; E11.9 Type 2 diabetes mellitus without complications; Z86.718 Personal history of other venous thrombosis and embolism
CPT/HCPCS: 82607-90; 97162-GP; 97166-GO; G8978-GP-CK; G8979-GP-CI; G8987-GO-CK; G8988-GO-CI